=== PATIENT | female | born 1995 | race Caucasian/White ===

== ENCOUNTER 2019-10-24 20:39 | Emergency (ER) | payer BC, SELFPAY ==
--- NOTE | ~2019-10-24 | XR_ITS ---
EXAMINATION: XR hand LT min 3V INDICATION: Left hand pain, initial encounter TECHNIQUE: Three views of the left hand are obtained. COMPARISON: None available FINDINGS: There is no fracture, dislocation, or subluxation. The bones, soft tissues, and joint space s are normal. IMPRESSION: 1. No acute osseous abnormality. Reviewed, dictated and finalized at location A.
[2019-10-24 20:41] VITALS: BP 145/88; PULSE 93; RESP 16; TEMP 36.2; O2SAT 100
--- NOTE | 2019-10-24 21:11 | ED.UPPEXIN ---
HPI - Extremity Injury (Upper) General Chief Complaint: Extremity Injury, Upper Stated Complaint: i need some xrays Time Seen by Provider: 10/24/19 20:57 Source: patient Mode of arrival: ambulatory Limitations: no limitations History of Present Illness HPI narrative: Patient is a 24-year-old female who presents to the emergency department with complaint of injury to her left second and third fingers. Patient states they were smashed when she tried to close a window last night. She reports bruising and swelling to the proximal phalanx of the second and third fingers on her left hand. She denies any other injuries or complaints. She applied some ice last night. She has not taken any medications for the pain. She tried freya taping the fingers without much relief in pain MD complaint: injury to: left and finger Other Extremity Injury: Left: fingers (Second and third) Treatments prior to arrival: cold therapy (Last night) Related Data Allergies Allergy/AdvReac Type Severity Reaction Status Date / Time Penicillins Allergy Mild Hives Verified 10/24/19 21:35 Review of Systems Review of Systems: All systems reviewed & are unremarkable except as noted in HPI and below PMFSH Past Medical History Medical History (Updated 10/24/19 @ 22:22 by Zoe Sams MD) No significant past medical history Surgical History Surgical History (Updated 10/24/19 @ 21:14 by Zoe Sams MD) No significant past surgical history Social History Social History Smoking status: Never smoker Gender identity (if verbalized by the patient): Female Exam Const: General: cooperative, no acute distress and alert Nutritional Appearance: well nourished Orientation/consciousness: patient oriented x3 Limitations: no limitations Resp: Effort & Inspection: normal respiratory effort Skin: General skin exam: normal color Neuro: General: patient oriented x3 Cognition (Neuro): normal cognition Speech: normal speech Extrem: General: full ROM and no clubbing, cyanosis or edema Left upper extremity: hand normal capillary refill, neurosensory exam normal, tenderness of the 2nd digit at the proximal phalanx and of the 3rd digit at the proximal phalanx and ecchymosis of the 2nd digit at the proximal phalanx and of the 3rd digit at the proximal phalanx Psych: Mental Status: mental status grossly normal Affect: normal affect Attitude: cooperative Course Course Emergency Course: Patient with no acute abnormalities noted on imaging. Discussed symptomatic management. Vital Signs Vital signs: Vital Signs Temperature 97.2 F L 10/24/19 20:41 Pulse Rate 93 10/24/19 20:41 Respiratory Rate 16 10/24/19 20:41 Blood Pressure 145/88 H 10/24/19 20:41 Pulse Oximetry 100 10/24/19 20:41 Temperature 97.2 F L 10/24/19 20:41 Pulse Rate 93 10/24/19 20:41 Respiratory Rate 16 10/24/19 20:41 Blood Pressure 145/88 H 10/24/19 20:41 Pulse Oximetry 100 10/24/19 20:41 MDM - Extremity Injury (Upper) Imaging Data Radiologist's impression: ITS Impressions Hand X-Ray 10/24/19 21:08 IMPRESSION: 1. No acute osseous abnormality. Critical Care Time Critical Care Time Critical Care Time: No Discharge Plan Discharge Clinical Impression: Contusion of left hand including fingers Qualifiers: Encounter type: initial encounter Qualified Code(s): S60.222A - Contusion of left hand, initial encounter Patient Disposition: Home, Self-Care Condition: Stable Instructions: Contusion in Adults (ED) Additional Instructions: May take acetaminophen 1000 mg every 6 hours as needed for pain. May take ibuprofen 400-600 mg every 6 hours as needed for pain. Ice and elevate for the next 24 to 48 hours to help with pain. Follow-up with on-call primary care physician for further care if needed Follow-up/Referrals: Heidi Cohn MD [Physician] - PHYSICIAN,RED LEADER [Primary Care Provider] -
[2019-10-24 22:30] VITALS: BP 130/87; PULSE 88; RESP 19; O2SAT 98
== END 2019-10-24 22:30 | disposition home or self-care (01) ==
PROVIDERS: Emergency Provider Emergency Medicine
DX: S60.022A Contusion of left index finger without damage to nail, initial encounter (principal); S60.032A Contusion of left middle finger without damage to nail, initial encounter; W23.0XXA Caught, crushed, jammed, or pinched between moving objects, initial encounter
CPT/HCPCS: 73130; 99283

== ENCOUNTER 2020-03-24 19:22 | Inpatient (IN) | payer BC, SELFPAY ==
--- NOTE | ~2020-03-24 | CT_ITS ---
EXAMINATION: CT abdomen pelvis wo con EXAM DATE: 03/24/2020 20:43 INDICATION: Nausea, vomiting, abdominal pain. TECHNIQUE: Spiral CT of the abdomen and pelvis was performed without contrast. Axial, coronal and s agittal images were reviewed. The dose-length product (DLP) for this examination was 158.00 mGy-cm. The exposure was tailored according to patient size (auto mA exposure control), and iterative recons truction (ASIR) was used as additional dose reduction technique. There is no prior study for compari son. FINDINGS: The liver, spleen, adrenal glands and pancreas are unremarkable. Gallbladder is unremarkab le. No biliary obstruction. There is no nephrolithiasis or hydronephrosis. The uterus is unremark able. The bladder is unremarkable. There is no retroperitoneal or pelvic lymphadenopathy. The appendix is not positively visualized. There is no pericecal inflammatory change to suggest appe ndicitis. The stomach and small bowel are unremarkable. Only small amount of colonic contents, sma ll amount of fluid, and suspect moderate amount of diffuse colonic wall edema, appearance most consis tent with enterocolitis. No free intraperitoneal gas. The heart is normal in size. There are no pericardial or pleural effusions. The lung bases are unremarkable. There are no significant osseous abnormalities identified. IMPRESSION: Findings consistent with enterocolitis. Reviewed, dictated and finalized at location A.
[2020-03-24 19:33] VITALS: BP 138/92; PULSE 124; RESP 20; TEMP 36.9; O2SAT 100
--- NOTE | 2020-03-24 19:35 | ED.NAVMDI ---
HPI - Nausea/Vomiting/Diarrhea General Chief complaint: Nausea/Vomiting/Diarrhea Stated complaint: nausea, vomiting Time Seen by Provider: 03/24/20 19:27 Source: patient Limitations: no limitations History of Present Illness HPI Narrative: Patient is a 24-year-old female complaining of nausea vomiting, diarrhea and diffuse abdominal pain that started this morning. Patient describes the vomitus as previously eaten food nonbilious nonbloody. Diarrhea is described as loose watery nonbloody. Bilateral lower lobe Related Data Home Medications Medication Instructions Recorded Confirmed albuterol sulfate INHALATION 03/24/20 Allergies Allergy/AdvReac Type Severity Reaction Status Date / Time Penicillins Allergy Mild Hives Verified 03/24/20 20:16 Review of Systems Review of Systems: All systems reviewed & are unremarkable except as noted in HPI and below Constitutional: Constitutional: Denies body ache(s), Denies chills, Denies excessive sweating, Denies fatigue, Denies fever(s), Denies headache(s), Denies lethargy, Denies malaise, Denies weakness and Denies weight loss Eyes: Eyes: Denies blurry vision, Denies change in vision and Denies loss of vision ENT: Denies dizziness, Denies ear discharge, Denies headache(s), Denies lip swelling, Denies epistaxis, Denies nasal congestion, Denies neck pain, Denies throat swelling and Denies tongue swelling Cardiovascular: Cardiovascular: Denies chest pain, Denies chest pain at rest, Denies chest pain with activity, Denies diaphoresis, Denies rapid heart rate, Denies edema, Denies irregular heart rhythm, Denies lightheadedness, Denies palpitations, Denies dyspnea and Denies dyspnea on exertion Respiratory: Respiratory: Denies chest congestion, Denies cough, Denies hemoptysis, Denies dyspnea and Denies dyspnea on exertion Gastrointestinal: Gastrointestinal: Denies melena, Denies hematochezia and Denies hematemesis Musculoskeletal: Musculoskeletal: Denies abnormal gait, Denies deformity, Denies joint swelling, Denies limited range of motion, Denies neck pain and Denies numbness Neurologic: Denies Abnormal speech present, Denies abnormal gait, Denies confusion, Denies dizziness, Denies headache(s), Denies focal weakness, Denies loss of vision, Denies numbness, Denies Other visual disturbances, Denies Sensory deficit (Neuro) and Denies weakness Psychiatric: Psychiatric: Denies confusion, Denies depression, Denies auditory hallucinations, Denies homicidal ideation and Denies suicidal ideation Endocrine: Endocrine: Denies cold intolerance, Denies excessive sweating, Denies fatigue, Denies heat intolerance and Denies palpitations Hematologic/Lymphatic: Hematologic/Lymphatic: Denies easy bleeding and Denies easy bruising Allergic/Immunologic: Allergic/Immunologic: Denies lip swelling, Denies throat swelling and Denies tongue swelling PMFSH Past Medical History Medical History (Updated 03/24/20 @ 21:48 by Demetris Gill MD) No significant past medical history Surgical History Surgical History (Updated 10/24/19 @ 21:14 by Zoe Sams MD) No significant past surgical history Social History Social History Smoking status: Never smoker Gender identity (if verbalized by the patient): Female Exam Const: General: cooperative, healthy appearing, comfortable, no acute distress, well developed, alert and awake; No confusion Orientation/consciousness: oriented to person, oriented to place, oriented to time, patient oriented x3 and No confusion Limitations: no limitations HENMT: Head: normal to inspection, normocephalic and atraumatic Ears: hearing grossly normal bilaterally, TM normal on the right and TM normal on the left General nose exam: Normal external nose present, Normal nares present and No nasal discharge present Face and sinus: normal facial exam Mouth: Yes Normal oral and palatal mucosa present, Yes lip normal, Yes tongue normal and Yes oropharynx normal Thro
[2020-03-24 19:52] LABS: Basophils Absolute Auto 0.1 K/mm3 (0.0-0.1); Basophils Percent Auto 0.3 % (0.2-1.2); Hematocrit 45.7 % (37.0-47.0); Hemoglobin 14.6 g/dL (12.0-15.0); Immature Granulocyte Absolute 0.06 K/mm3 (0.00-0.031); Immature Granulocyte Percent A 0.4 % (0-0.5); Lymphocytes Absolute Auto 1.43 K/mm3 (0.9-3.2); Lymphocytes Percent Auto 9.8 % (18.3-44.2); Mean Corpuscular HGB Conc 31.9 g/dl (32-36); Mean Corpuscular Volume 103.2 fl (80-100); Mean Platelet Volume 9.7 fl (7.4-10.4); Monocytes Absolute Auto 1.7 K/mm3 (0.1-0.6); Monocytes Percent Auto 11.5 % (2.6-8.5); Neutrophils Absolute Auto 11.4 K/mm3 (1.3-6.7); Platelet Count Result 369 k/mm3 (150-375); Red Blood Count 4.43 M/mm3 (4.2-5.4); Red Cell Distribution Width 12.9 % (11.5-14.5); White Blood Count 14.6 K/mm3 (4.5-10.0)
--- NOTE | 2020-03-24 20:00 | PM.IMHP ---
H&P: HPI History of Present Illness Date/Time: 03/24/20 20:00 Chief complaint: Nausea, vomiting, abdominal discomfort. Narrative: Abida Bello is a 24-year-old female without significant medical problems who presented to the emergency department earlier today from home for evaluation of nausea, vomiting, and abdominal discomfort. She awoke from sleep at about 07:00 and shortly thereafter she developed nausea, vomiting, and diffuse abdominal cramping. Since that time she reports innumerable bouts of nonbilious and nonbloody emesis, and more recently she has noticed dark brown flecks in the emesis. She had maybe 1 to 2 very small loose stools today but goes on to say that she has not had anything to eat today or yesterday, reportedly because she was stressed out yesterday and she tends not to eat with high levels of stress. A couple of days ago she did go out for a friend's birthday and it sounds as though she consumed quite a bit of alcohol. She tends to drink whiskey, at times in pretty significant quantities, a couple of times a week. No fever, chills, or sweats. She denies indigestion and history of peptic ulcers. She denies recent travel, sick contacts, consumption or perforation of raw meat and fish, and recent antibiotic use. No melena or hematochezia. She denies ingestion of methanol, isopropyl, [id number] supplements, illicit substances other than marijuana, acetaminophen, NSAIDs, and salicylates. Review of Systems Review of Systems: Narrative: Twelve systems were reviewed with pertinent positives and negatives as per HPI. Weight has remained stable. She is complaining of a sore throat from emesis, and feels as though she cannot swallow well because of it. No history of thyroid disease. She denies palpitations and shortness of breath however her mom did notice that her breathing seemed to be more rapid in deeper than usual. She denies cough. No exposure to those positive for COVID-19. She is just finishing her menstrual cycle. No dysuria or hematuria. She denies ever having signs or symptoms of alcohol withdrawal. Admits to having anxiety quite a bit. No depression or harmful thoughts. Except as documented, all other systems were reviewed and are negative. [facility] Past Medical History Medical History No significant past medical history Surgical History Surgical History (Updated 03/25/20 @ 01:34 by Oly Gaffney PA-C) [place] teeth extracted Family History Family History Father Cancer Social History Social History (Updated 03/25/20 @ 01:35 by Oly Gaffney PA-C) Social History: Surrogate decision maker: Bonnie Hollis, mother. Code status: Full code. Smoking status: Never smoker Alcohol intake: current Alcohol use details: Drinks whiskey several times a week, unable to qualify how much she drinks. Substance use: current Substance use type: marijuana Additional living arrangements comments: Lives in [place] with a roommate. Additional occupation/education comments: Beautician. Gender identity (if verbalized by the patient): Female Spiritual care concerns: No Meds Home Medications and Allergies Home Medications Medication Instructions Recorded Confirmed Type No Home Medications 03/25/20 03/25/20 History Allergies Allergy/AdvReac Type Severity Reaction Status Date / Time Penicillins Allergy Mild Hives Verified 03/24/20 20:16 Vital Signs Vital Signs - 24 hr 03/24/20 19:33 03/24/20 20:07 Temperature 98.5 F 98.2 F Pulse Rate 124 H 112 H Respiratory Rate 20 18 Blood Pressure 138/92 H 131/91 H Pulse Oximetry 100 100 Exam Narrative: Exam Narrative: General: Sin moderately ill-appearing female sitting up in bed, frequently clearing her throat and spitting up saliva. Emesis bag contains opaque brown fluid.
[2020-03-24] MEDS: SODIUM CHLORIDE 0.9% IV 1,000 ML 999 ML IV CONT (20:02)
[2020-03-24 20:03] LABS: Alanine Aminotransferase 103 U/L (4-35); Albumin Level 5.7 g/dL (3.5-5.1); Alkaline Phosphatase 115 U/L (38-126); Anion Gap 33.00001 mmol/L (8-16); Aspartate Amino Transferase 101 U/L (14-36); Bilirubin,Total 0.7 mg/dL (0.2-1.3); Blood Urea Nitrogen 10 mg/dL (7-17); Calcium 10.1 mg/dL (8.4-10.2); Carbon Dioxide < 5 mmol/L (22-30); Chloride 99 mmol/L (98-107); Estimated Glomerular Filt Rate 50; Glucose 131 mg/dL (65-105); Lipase 77 U/L (23-300); Potassium 5.3 mmol/L (3.4-5.0); Sodium 137 mmol/L (137-145)
[2020-03-24] MEDS: PROMETHAZINE HCL 25 MG/ML AMPUL 12.5 MG IV PUSH (20:03)
[2020-03-24] MEDS: ONDANSETRON INJ 4 MG/2 ML VIAL IV PUSH ×2 (20:03→21:23)
[2020-03-24 20:07] VITALS: BP 131/91; PULSE 112; RESP 18; TEMP 36.8; O2SAT 100
[2020-03-24 21:09] LABS: Add Urine Microscopic? YES; Appearance Urine Cloudy (Clear); Bilirubin Urine Negative (Negative); Blood Urine 3+ (Negative); Color Urine Yellow (Yellow); Glucose Urine UA Negative (Negative); Hyaline Casts Urine 50+ /lpf; Ketones Urine 2+ mg/dL (Negative); Leukocyte Esterase Ur Negative LEU/UL (Negative); Mucus Urine Rare /lpf; Nitrate Urine Negative (Negative); Protein Urine 2+ mg/dL (Negative); RBC Urine >75 /hpf (0-2); Specific Grav Ur 1.017 (1.001-1.035); Squamous Epithelial Cell Urine Many /hpf (Few); Urobilinogen Urine Negative mg/dL (<2.0)
[2020-03-24] MEDS: LACTATED RINGERS 1,000 ML 999 ML IV CONT ×2 (21:23→22:23)
[2020-03-24] MEDS: PANTOPRAZOLE SODIUM IV 40 MG VIAL IV PUSH (21:29)
[2020-03-24 22:04] LABS: Magnesium 2.1 mg/dL (1.6-2.3); Phosphorus 5.1 mg/dL (2.5-4.5)
[2020-03-24 22:04] LABS: Alveolar/Arterial O2 Gradient 14.9 mmHg; Base Excess ABG -21.2 mEq/l (+/-2.0); Carboxyhemoglobin 0.4 % THb (0-2.0); Fractional Inspired Oxygen 21 %; HCO3 ABG 4.7 mEq/l (22.0-26.0); Methemoglobin ABG 0.4 %THb (0-1.5); Oxygen Saturation ABG 97.5 % (95.0-100.0); Oxyhemoglobin 96.8 % THb (90.0-100.0); PO2 ABG 119.3 mmHg (80.0-100.0); PO2 FiO2 Ratio Arterial Blood 5.68 %; Reduced Hemoglobin 2.4 %THb (0-5.0); Total Hemoglobin 13.1 g/dL (12.0-18.0)
[2020-03-24 22:05] LABS: CRP < 0.5 mg/dL (<1.0)
[2020-03-24 22:06] LABS: pH ABG 7.179 (7.350-7.450)
[2020-03-24 22:07] LABS: Device ROOM AIR; Modified Allen's Test Pass; Site Drawn LEFT RADIAL
[2020-03-24 22:14] VITALS: BP 117/77; PULSE 124; RESP 18; O2SAT 98
[2020-03-24 22:33] LABS: INR 1.1; Prothrombin Time 14.3 Seconds (11.1-14.7)
[2020-03-24 22:34] LABS: Partial Thromboplastin Time 28.5 SECONDS (22.3-36.8)
[2020-03-24 22:35] LABS: Hepatitis B Surface Antigen Negative (Negative)
[2020-03-24 22:36] LABS: Lactate Dehydrogenase 312 U/L (313-618); Lactic Acid Reflex 0.9 mmol/L (0.7-2.1)
[2020-03-24 22:41] LABS: HAV RESULT Negative (Negative); Hepatitis B Core IgM Result Negative (Negative)
[2020-03-24 22:45] LABS: Amphetamine Screen Urine Negative (Negative); Barbiturate Screen Urine Negative (Negative); Benzodiazepines Screen Urine Negative (Negative); Cannabinoid Screen Urine Positive (Negative); Cocaine Screen Urine Negative (Negative); Methadone Screen Urine Negative (Negative); Opiate Screen Urine Negative (Negative); Phencyclidine Screen Urine Negative (Negative)
[2020-03-24 22:52] LABS: Hepatitis C Virus Antibody Negative (Negative)
[2020-03-25] VITALS (8 sets, daily range): BP systolic 102–118; BP diastolic 64–79; PULSE 93–132; RESP 12–26; TEMP 36.8–37.2; O2SAT 98–100; BMI 19.5
[2020-03-25] MEDS: SODIUM BICARBONATE 8.4% 150 MEQ in DEXTROSE 5% 1,000 ML 950 ML 75 MEQ IV CONT (00:11)
[2020-03-25] MEDS: metroNIDAZOLE 500 MG/ISO 100ML 500 MG/100 ML BAG 100 MG IVPB ×5 (00:11→23:14)
--- NOTE | 2020-03-25 00:54 | ADMGEN ---
This patient, Abida Bello, was admitted to Intensive Care Unit-9 03/24/20 at 2335. Patient/family oriented to hospital policies and general routines including ID bracelet, bed and alarms, visiting hours, pain management, procedures, bathroom and other care routines, personal items, smoking policy, room service/diet, and visiting hours. Information on how to activate the Rapid Response Team has been discussed. Patient/Family are encouraged to report perceived risks to care and to ask questions if they do not understand what they are told or what they should do.
[2020-03-25 01:06] LABS: Hemoglobin A1C 4.4 % (<5.7)
[2020-03-25 01:12] LABS: Anion Gap 18 mmol/L (8-16); Blood Urea Nitrogen 7 mg/dL (7-17); Calcium 8.4 mg/dL (8.4-10.2); Carbon Dioxide 8 mmol/L (22-30); Chloride 108 mmol/L (98-107); Estimated CRCL calculation 65 ml/min; Estimated Glomerular Filt Rate > 60; Glucose 111 mg/dL (65-105); Potassium 4.9 mmol/L (3.4-5.0); Sodium 134 mmol/L (137-145)
[2020-03-25 02:11] LABS: Acetaminophen < 10 ug/mL (10-30); Salicylate < 1.0 mg/dL (2-20)
[2020-03-25 04:17] LABS: Hematocrit 35.4 % (37.0-47.0); Hemoglobin 11.8 g/dL (12.0-15.0); Mean Corpuscular HGB Conc 33.3 g/dl (32-36); Mean Corpuscular Hemoglobin 33.2 pg (26-34); Mean Corpuscular Volume 99.7 fl (80-100); Mean Platelet Volume 9.2 fl (7.4-10.4); Platelet Count Result 227 k/mm3 (150-375); Red Blood Count 3.55 M/mm3 (4.2-5.4); White Blood Count 12.4 K/mm3 (4.5-10.0)
[2020-03-25] MEDS: ONDANSETRON INJ 4 MG/2 ML VIAL IV PUSH (04:17)
[2020-03-25 04:39] LABS: Alanine Aminotransferase 66 U/L (4-35); Albumin Level 4.2 g/dL (3.5-5.1); Alkaline Phosphatase 61 U/L (38-126); Anion Gap 15 mmol/L (8-16); Aspartate Amino Transferase 68 U/L (14-36); Bilirubin,Total 0.7 mg/dL (0.2-1.3); Blood Urea Nitrogen 7 mg/dL (7-17); Calcium 8.1 mg/dL (8.4-10.2); Carbon Dioxide 13 mmol/L (22-30); Chloride 106 mmol/L (98-107); Estimated CRCL calculation 72 ml/min; Estimated Glomerular Filt Rate > 60; Glucose 125 mg/dL (65-105); Magnesium 1.6 mg/dL (1.6-2.3); Potassium 4.2 mmol/L (3.4-5.0); Sodium 134 mmol/L (137-145)
[2020-03-25] MEDS: LACTATED RINGERS 1,000 ML 999 ML IV CONT (07:30)
--- NOTE | 2020-03-25 09:07 | WPDCNINT ---
Assessment and Plan Assessment and plan (1) Sepsis: Code(s): A41.9 - Sepsis, unspecified organism Status: Acute Assessment and Plan: leukocytosis, tachycardia, elevated creatinine, enterocolitis - lactic acid is normal: Blood pressures have been stable - continue levofloxacin and Flagyl - CT scan of the abdomen done in the ER showed enterocolitis (2) Metabolic acidosis: Code(s): E87.2 - Acidosis Status: Acute Assessment and Plan: severe metabolic acidosis could be related multiple reasons, could be secondary to diarrhea, alcohol use, history of salicylates use - continue sodium bicarb IV fluids (3) Enterocolitis: Code(s): K52.9 - Noninfective gastroenteritis and colitis, unspecified Status: Acute Assessment and Plan: continue antibiotics as above (4) Acute dehydration: Code(s): E86.0 - Dehydration Status: Acute Assessment and Plan: patient will be given additional IV fluid bolus this morning - continue maintenance IV fluids with bicarb infusion (5) Nausea & vomiting: Code(s): R11.2 - Nausea with vomiting, unspecified Status: Acute Assessment and Plan: vomiting has resolved, continues to have nausea, patient does have Zofran p.r.n. ordered Additional Plan discussed with patient updated with her condition and plan of care. I answered all questions code status: Full code Critical care time spent: 43 minutes Due to a high probability of clinically significant, life threatening deterioration, the patient required my highest level of preparedness to intervene emergently and I personally spent this critical care time directly and personally managing the patient. This critical care time included obtaining a history; examining the patient; pulse oximetry; ordering and review of studies; arranging urgent treatment with development of a management plan; evaluation of patient's response to treatment; frequent reassessment; and discussions with other providers. It was exclusive of separately billable procedures and treating other patients and teaching time. Please see Assessment and Plan section and the rest of the note for further information on patient assessment and treatment Cabin Service Agent Consult Note Consult date: 03/25/20 Time Seen: 07:03 Reason for consult: anion gap metabolic acidosis, nausea, vomiting, diarrhea, abdominal discomfort HPI: Abida Bello is a 24 year old female with no previous past medical history presented the ED on 03/24/2020 with complains of nausea, vomiting, abdominal discomfort and diarrhea. Patient was found to have a significant anion gap metabolic acidosis. Blood sugars were within normal limits. LFT were elevated. ABG showed a pH of 7.17. WBC count of 14.6. Patient was given 3 L IV fluid bolus, started on a bicarb infusion . CT scan of the abdomen and pelvis showed moderate amount of diffuse colonic wall edema consistent with enterocolitis. Patient was transferred to the ICU for further management. Patient seen and examined this morning. States she feels a little better, blood pressures are stable, patient remains tachycardic. Complains of nausea, abdominal discomfort, feels thirsty. His any nausea, chest pain, shortness of breath. Patient is awake, alert, oriented x3. Upon further questioning patient denies any tobacco use, illicit drug use except for marijuana. patient does drink see several times a week. Patient does take NSAIDs and salicylates along with acetaminophen at times. Urine drug screen was positive only for marijuana. Serum creatinine was 1.3 on admission. Eighty creatinine has come down to 0.8 this morning. LFTs trending down. CRP, ferritin and LDH were within normal limits. INR of 1.1. Urine output has been adequate continue patient on afebrile and hemodynamically stable with tachycardia Review of Systems Review of Systems: All systems reviewed & are unremar
--- NOTE | 2020-03-25 14:40 | PC.NURSE ---
1435-PATIENT TRANSFERRED TO ROOM 251. REPORT GIVEN TO ALESHIA PEREIRA. ALL QUESTIONS ANSWERED.
--- NOTE | 2020-03-25 15:15 | PC.NURSE ---
This patient, Abida Bello, was received from ICU on 03/25/20 at 1435. Received report from ALESHIA Apodaca. Patient/family oriented to unit policies and routines.
--- NOTE | 2020-03-25 16:19 | PM.IMPN ---
Progress Note: A&P Assessment and Plan (1) Sepsis: Code(s): A41.9 - Sepsis, unspecified organism Status: Acute Assessment and Plan: thought secondary to enterocolitis, continue hydration and antibiotics. Serum lactate normal (2) Gastritis: Code(s): K29.70 - Gastritis, unspecified, without bleeding Status: Acute Assessment and Plan: hydration and anti emetics (3) Enterocolitis: Code(s): K52.9 - Noninfective gastroenteritis and colitis, unspecified Status: Acute Assessment and Plan: hydration and antibiotics. Improving and will advance diet (4) Metabolic acidosis: Code(s): E87.2 - Acidosis Status: Acute Assessment and Plan: negative lactic acid and normal blood sugar suspect dehydration and/or alcoholic ketoacidosis.. Continue hydration with bicarbonate and (5) Acute dehydration: Code(s): E86.0 - Dehydration Status: Acute Assessment and Plan: BUN and and creatinine now normal range with creatinine 0.8 continue hydration (6) Hyperkalemia: Code(s): E87.5 - Hyperkalemia Status: Acute Assessment and Plan: with correction of acidosis potassium has fallen a now 4.2 this a.m. (7) Elevated LFTs: Code(s): R79.89 - Other specified abnormal findings of blood chemistry Status: Acute Assessment and Plan: falling and probably secondary to ETOH consumption. Especially with elevated MCV and normal B12. Hepatitis profile negative. Continue serial examination , start thiamin Subjective Date/time seen: 03/25/20 16:19 Interval history: date of visit 03/25. 24-year-old white female admitted with nausea and vomiting and found to have entero colitis on CT scan with acute renal failure and metabolic acidosis. With hydration her metabolic status has improved and she feels better ready to eat something.. Exam Narrative: Exam Narrative: Blood pressure 104/64 pulse is 72 saturating 98% room air General: in less distress this a.m. and lying comfortably in bed Weight: only 48.6 kg. BMI: 19.6. HEENT: PERRL, Sclerae anicteric. Oral mucosa is better hydrated Neck: Supple. . Respiratory: . Lungs are clear to auscultation bilaterally. Cardiovascular: heart rate has slowed and no murmurs heard Gastrointestinal: Abdomen is soft and nondistended with positive bowel sounds. She is less tender to palpation throughout the abdomen. No voluntary guarding or rebound tenderness. Skin: Warm and dry. No rash or lesions on limited exam. Extremities: No edema. Radial and pedal pulses intact. Neurological: Alert. Cranial nerves 2-12 are grossly intact. with no focal neurological deficits Psychiatric: Cooperative. Normal mood and affect. Objective Data Vital Signs Vital Signs: Vital Signs - 24 hr 03/24/20 19:33 03/24/20 20:07 03/24/20 22:14 Temperature 36.9 C 36.8 C Pulse Rate 124 H 112 H 124 H Respiratory Rate 20 18 18 Blood Pressure 138/92 H 131/91 H 117/77 Pulse Oximetry 100 100 98 03/25/20 00:00 03/25/20 02:00 03/25/20 04:00 Temperature 36.8 C 37.2 C Pulse Rate 120 H 125 H 123 H Respiratory Rate 26 H 18 18 Blood Pressure 118/79 108/65 114/65 Pulse Oximetry 100 99 98 03/25/20 06:00 03/25/20 08:00 03/25/20 10:00 Temperature 36.9 C Pulse Rate 107 H 105 H 113 H Respiratory Rate 15 17 12 Blood Pressure 102/65 109/79 109/67 Pulse Oximetry 98 100 100 03/25/20 12:00 Temperature 36.9 C Pulse Rate 93 Respiratory Rate 18 Blood Pressure 105/64 Pulse Oximetry 98 Intake/Output Intake/Output: Intake & Output 03/22/20 03/23/20 03/24/20 03/25/20 23:59 23:59 23:59 23:59 Intake Total 3000 867 Output Total 500 Balance 3000 367 Meds/Results Medications: Active Medications Generic Name Dose Route Start Last Admin Trade Name Freq PRN Reason Stop Dose Admin Levofloxacin/Dextrose 750 mg in 150 mls @ 100 mls/hr 03/25/20 00:00 03/25/20 02:42 Levaq
[2020-03-25] MEDS: SODIUM BICARBONATE 8.4% 150 MEQ in DEXTROSE 5% 1,000 ML 950 ML 100 MEQ IV CONT (17:08)
[2020-03-25] MEDS: THIAMINE HCL 100 MG TABLET PO (17:10)
[2020-03-26] MEDS: ONDANSETRON INJ 4 MG/2 ML VIAL IV PUSH (05:46)
[2020-03-26] MEDS: SODIUM BICARBONATE 8.4% 150 MEQ in DEXTROSE 5% 1,000 ML 950 ML 100 MEQ IV CONT ×2 (05:49→08:05)
[2020-03-26] MEDS: metroNIDAZOLE 500 MG/ISO 100ML 500 MG/100 ML BAG 100 MG IVPB ×3 (05:50→18:23)
[2020-03-26 06:00] VITALS: BP 115/69; PULSE 74; RESP 21; TEMP 36.4; O2SAT 100
[2020-03-26 07:05] LABS: Alanine Aminotransferase 93 U/L (4-35); Albumin Level 3.5 g/dL (3.5-5.1); Alkaline Phosphatase 53 U/L (38-126); Anion Gap 6 mmol/L (8-16); Aspartate Amino Transferase 126 U/L (14-36); Bilirubin,Total 0.7 mg/dL (0.2-1.3); Blood Urea Nitrogen 3 mg/dL (7-17); Calcium 8.6 mg/dL (8.4-10.2); Carbon Dioxide 32 mmol/L (22-30); Chloride 97 mmol/L (98-107); Estimated CRCL calculation 93 ml/min; Estimated Glomerular Filt Rate > 60; Glucose 81 mg/dL (65-105); Magnesium 1.5 mg/dL (1.6-2.3); Sodium 135 mmol/L (137-145)
[2020-03-26 07:11] LABS: Basophils Percent Auto 0.6 % (0.2-1.2); Eosinophils Absolute Auto 0.1 K/mm3 (0-0.3); Hematocrit 34.3 % (37.0-47.0); Hemoglobin 11.8 g/dL (12.0-15.0); Immature Granulocyte Absolute 0.01 K/mm3 (0.00-0.031); Immature Granulocyte Percent A 0.2 % (0-0.5); Lymphocytes Absolute Auto 1.91 K/mm3 (0.9-3.2); Lymphocytes Percent Auto 39.5 % (18.3-44.2); Mean Corpuscular HGB Conc 34.4 g/dl (32-36); Mean Corpuscular Volume 95.8 fl (80-100); Mean Platelet Volume 9.7 fl (7.4-10.4); Monocytes Absolute Auto 0.9 K/mm3 (0.1-0.6); Monocytes Percent Auto 19.5 % (2.6-8.5); Neutrophils Absolute Auto 1.9 K/mm3 (1.3-6.7); Neutrophils Percent Auto 39.2 % (45.5-73.1); Platelet Count Result 187 k/mm3 (150-375); Red Blood Count 3.58 M/mm3 (4.2-5.4); White Blood Count 4.8 K/mm3 (4.5-10.0)
[2020-03-26 07:35] LABS: Phosphorus < 1.0 mg/dL (2.5-4.5)
[2020-03-26 07:56] LABS: Vitamin D 25 Hydroxy 18.6 ng/mL
[2020-03-26] MEDS: MAGNESIUM SULF 2 GM/WATER 50ML 2 GM/50 ML BAG IVPB (09:22)
[2020-03-26] MEDS: POTASSIUM CHLORIDE 20 MEQ TABLET PO (09:23)
[2020-03-26] MEDS: THIAMINE HCL 100 MG TABLET PO (09:23)
[2020-03-26] MEDS: POTASSIUM PHOS,M-BASIC-D-BASIC 20 MMOL in SODIUM CHLORIDE 0.9% IV 250 ML 62.5 MMOL IVPB ×3 (10:29→20:52)
--- NOTE | 2020-03-26 12:36 | PM.IMPN ---
Progress Note: A&P Assessment and Plan (1) Sepsis: Code(s): A41.9 - Sepsis, unspecified organism Status: Acute Assessment and Plan: thought secondary to enterocolitis, continue hydration and antibiotics. Serum lactate normal, co2 risen and cultures neg (2) Gastritis: Code(s): K29.70 - Gastritis, unspecified, without bleeding Status: Acute Assessment and Plan: hydration and anti emetics (3) Enterocolitis: Code(s): K52.9 - Noninfective gastroenteritis and colitis, unspecified Status: Acute Assessment and Plan: hydration and antibiotics. Improving and will advance diet to regular (4) Metabolic acidosis: Code(s): E87.2 - Acidosis Status: Acute Assessment and Plan: negative lactic acid and normal blood sugar suspect dehydration and/or alcoholic ketoacidosis.. C02 32 so stop hydration with bicarbonate (5) Acute dehydration: Code(s): E86.0 - Dehydration Status: Acute Assessment and Plan: BUN and and creatinine now normal range with creatinine 0.6 today (6) Hyperkalemia: Code(s): E87.5 - Hyperkalemia Status: Acute Assessment and Plan: with correction of acidosis potassium has fallen a now 3.0 this a.m., replace (7) Elevated LFTs: Code(s): R79.89 - Other specified abnormal findings of blood chemistry Status: Acute Assessment and Plan: falling and probably secondary to ETOH consumption. Especially with elevated MCV and normal B12. Hepatitis profile negative. Continue serial examination , started thiamin CT liver ok will need outpt follow up Subjective Date/time seen: 03/26/20 12:36 Interval history: date of visit 03/26. 24-year-old white female admitted with nausea and vomiting and found to have entero colitis on CT scan with acute renal failure and metabolic acidosis. With hydration her metabolic status has improved and she feels better and tolerating full liquid diet.. Exam Narrative: Exam Narrative: Blood pressure 114/70 pulse is 74 saturating 98% room air afebrile General: lying comfortably in bed , no distress HEENT: PERRL, Sclerae anicteric. Neck: Supple. . Respiratory: . Lungs are clear to auscultation bilaterally. Cardiovascular: heart rate has slowed and no murmurs heard Gastrointestinal: Abdomen is soft and nondistended with positive bowel sounds. She is less tender to palpation throughout the abdomen. Skin: Warm and dry. No rash or lesions Extremities: No edema. Radial and pedal pulses intact. Neurological: Alert. Cranial nerves 2-12 are grossly intact. with no focal neurological deficits Psychiatric: Cooperative. Normal mood and affect. Objective Data Vital Signs Vital Signs: Vital Signs - 24 hr 03/25/20 22:00 03/26/20 06:00 Temperature 37.1 C 36.4 C Pulse Rate 97 74 Respiratory Rate 21 H 21 H Blood Pressure 111/72 115/69 Pulse Oximetry 100 100 Intake/Output Intake/Output: Intake & Output 03/23/20 03/24/20 03/25/20 03/26/20 23:59 23:59 23:59 23:59 Intake Total 3000 2270 3100 Output Total 700 600 Balance 3000 1570 2500 Meds/Results Medications: Active Medications Generic Name Dose Route Start Last Admin Trade Name Freq PRN Reason Stop Dose Admin Levofloxacin/Dextrose 750 mg in 150 mls @ 100 mls/hr 03/25/20 00:00 03/26/20 01:56 Levaquin 750 Mg/D5w 150 Ml IVPB Infused Q24H ARIAN Infusion Metronidazole 500 mg in 100 mls @ 100 mls/hr 03/24/20 23:00 03/26/20 11:35 Flagyl 500 Mg/Iso Soln 100 Ml IVPB Infused Q6H ARIAN Infusion Sodium Bicarbonate 150 meq/ 1,100 mls @ 100 mls/hr 03/24/20 23:30 03/26/20 08:05 Dextrose IV CONT 100 mls/hr .Q11H ARIAN Administration Potassium Phosphate 20 mmol/ 256.6667 mls @ 62.5 mls/hr 03/26/20 18:00 Sodium Chloride IVPB 03/26/20 22:06 ONCE ONE Potassium Phosphate 20 mmol/ 256.6667 mls @ 62.5 mls/hr 03/26/20 13:00 Sodium Chloride
[2020-03-26 14:00] VITALS: BP 130/85; PULSE 91; RESP 16; TEMP 36.6; O2SAT 100
[2020-03-26 16:17] LABS: Albumin Level 4.9 g/dL (3.5-5.1); Anion Gap 12 mmol/L (8-16); Calcium 9.7 mg/dL (8.4-10.2); Carbon Dioxide 26 mmol/L (22-30); Chloride 102 mmol/L (98-107); Estimated CRCL calculation 93 ml/min; Estimated Glomerular Filt Rate > 60; Glucose 87 mg/dL (65-105); Phosphorus 2.7 mg/dL (2.5-4.5); Potassium 3.6 mmol/L (3.4-5.0); Sodium 140 mmol/L (137-145)
[2020-03-26 16:23] LABS: Blood Urea Nitrogen < 2 mg/dL (7-17)
[2020-03-26 20:00] VITALS: BP 113/85; PULSE 80; RESP 18; TEMP 36.4; O2SAT 100
[2020-03-27] MEDS: metroNIDAZOLE 500 MG/ISO 100ML 500 MG/100 ML BAG 100 MG IVPB ×2 (00:14→05:53)
[2020-03-27 04:00] VITALS: BP 123/89; PULSE 100; RESP 18; TEMP 36.2; O2SAT 100
[2020-03-27 06:16] LABS: Albumin Level 3.7 g/dL (3.5-5.1); Anion Gap 8 mmol/L (8-16); Calcium 8.8 mg/dL (8.4-10.2); Carbon Dioxide 24 mmol/L (22-30); Chloride 105 mmol/L (98-107); Estimated CRCL calculation 93 ml/min; Estimated Glomerular Filt Rate > 60; Glucose 83 mg/dL (65-105); Magnesium 1.9 mg/dL (1.6-2.3); Phosphorus 2.9 mg/dL (2.5-4.5); Potassium 3.4 mmol/L (3.4-5.0); Sodium 137 mmol/L (137-145)
[2020-03-27 06:21] LABS: Blood Urea Nitrogen < 2 mg/dL (7-17)
[2020-03-27] MEDS: THIAMINE HCL 100 MG TABLET PO (08:12)
[2020-03-27] MEDS: POTASSIUM CHLORIDE 20 MEQ TABLET PO (12:08)
--- NOTE | 2020-03-28 18:09 | PM.DS ---
DS: Admitting Diagnosis Admitting Diagnosis Admitting Diagnosis: Nausea, vomiting, abdominal discomfort. DS: Discharge Diagnosis Discharge Diagnosis (1) Sepsis: Code(s): A41.9 - Sepsis, unspecified organism Status: Acute Assessment and Plan: thought secondary to enterocolitis, continued hydration and antibiotics. Serum lactate normal, co2 risen and cultures neg white count normal and CO2 had risen to normal by discharge (2) Gastritis: Code(s): K29.70 - Gastritis, unspecified, without bleeding Status: Acute Assessment and Plan: hydration and anti emetics (3) Enterocolitis: Code(s): K52.9 - Noninfective gastroenteritis and colitis, unspecified Status: Acute Assessment and Plan: hydration and antibiotics. Improving and advanced diet to regular was tolerated well before discharge discharge home on Levaquin 500 daily for 4 days and metronidazole 500 t.i.d. caution not to drink any alcohol with the metronidazole (4) Metabolic acidosis: Code(s): E87.2 - Acidosis Status: Acute Assessment and Plan: negative lactic acid and normal blood sugar suspect dehydration and/or alcoholic ketoacidosis.. C02 32 so stopped hydration with bicarbonate and normal CO2 of 24 at discharge (5) Acute dehydration: Code(s): E86.0 - Dehydration Status: Acute Assessment and Plan: BUN and and creatinine now normal range with creatinine 0.6 today at discharge (6) Hyperkalemia: Code(s): E87.5 - Hyperkalemia Status: Acute Assessment and Plan: with correction of acidosis potassium has fallen and actually toward low side (7) Elevated LFTs: Code(s): R79.89 - Other specified abnormal findings of blood chemistry Status: Acute Assessment and Plan: falling and probably secondary to ETOH consumption. Especially with elevated MCV and normal B12. Hepatitis profile negative. CT liver ok will need outpt follow up with liver profile or complete metabolic profile within 2 weeks DS: Summary Hospital Course Hospital Course: 24-year-old female admitted nausea and vomiting found to profound acidosis. Acidosis thought to be secondary to dehydration ketoacidosis and/or alcoholic acidosis which responded to bicarbonate infusion. CT scan revealed enterocolitis is and she is treated with antibiotics with resolution of diarrhea and abdominal discomfort. She will continue p.o. antibiotics for 4 more days post discharge. At discharge CO2 is up to 24 creatinine normal with potassium 3.4 which was replaced. She was encouraged not to drink any alcohol and to have a metabolic profile drawn within 2 weeks to follow-up on her LFTs. Hepatitis AB and C profile was negative and CT scan showed no abnormality of the liver parenchyma or right upper quadrant Time Spent with Patient Time attestation: Total time spent providing and/or coordinating discharge services: 35 minutes Exam Narrative: Exam Narrative: condition on discharge blood pressure 124/84 pulse is 100 saturating 100% on room air afebrile lungs clear CV slightly tachy but regular rate rhythm no murmur abdomen soft nontender bowel sounds normal active extremities without edema good distal pulses up in about tolerating a regular diet and able to be discharged home in stable condition DS: Data Data Completed and Pending Labs on day of discharge: Preliminary micro results at discharge 03/24/20 22:18 Blood Culture - Preliminary Blood 03/24/20 22:17 Blood Culture - Preliminary Blood Discharge Plan Discharge Attending physician on discharge: Dominic Nguyen Discharging Clinician: Dominic Nguyen Patient Disposition: Home, Self-Care Activity: as tolerated Diet: as tolerated Patient Instructions: Antibiotic Form, Dehydration (GEN), Acute Nausea and Vomiting (GEN), Metabolic Acidosis (GEN) Stand Alone Forms: General Discharge I
== END 2020-03-27 12:35 | disposition home or self-care (01) | DRG 872 ==
LOC: ANHED 22:32 → ANHICU 03-25 01:01 → ANH2MED 03-27 10:57 → ANHICU 03-31 13:58
PROVIDERS: Physician Assistant; Admitting Provider Internal Medicine; Emergency Provider Emergency Medicine; Visit Provider Internal Medicine
DX: A41.9 Sepsis, unspecified organism (principal); E87.2 Acidosis; N17.9 Acute kidney failure, unspecified; A08.4 Viral intestinal infection, unspecified; K52.9 Noninfective gastroenteritis and colitis, unspecified; E86.0 Dehydration; E87.5 Hyperkalemia; R94.5 Abnormal results of liver function studies; Z72.89 Other problems related to lifestyle
CPT/HCPCS: 36415; 36600; 74176; 80048; 80053; 80069; 80074; 80076; 80307; 81001; 81025; 82306; 82375; 82607; 82728; 82805; 83036; 83050; 83605; 83615; 83690; 83735; 84100; 84443; 85025; 85027; 85610; 85730; 86140; 87040; 96361; 96374; 96375; 96376; 99285; A9270; C9113; J1956; J2405; J2550; J3475; J7030; J7050; J7070; J7120

== ENCOUNTER 2020-04-12 07:40 | Outpatient (CLI) | payer BC, SELFPAY ==
[2020-04-12 08:15] LABS: Alanine Aminotransferase 29 U/L (4-35); Albumin Level 4.3 g/dL (3.5-5.1); Alkaline Phosphatase 62 U/L (38-126); Anion Gap 10 mmol/L (8-16); Aspartate Amino Transferase 37 U/L (14-36); Bilirubin,Total 0.4 mg/dL (0.2-1.3); Blood Urea Nitrogen 15 mg/dL (7-17); Calcium 9.1 mg/dL (8.4-10.2); Carbon Dioxide 25 mmol/L (22-30); Chloride 104 mmol/L (98-107); Estimated Glomerular Filt Rate > 60; Glucose 95 mg/dL (65-105); Potassium 4.5 mmol/L (3.4-5.0); Sodium 139 mmol/L (137-145)
== END 2020-04-12 07:41 | disposition home or self-care (01) ==
PROVIDERS: Visit Provider Internal Medicine
DX: R79.89 Other specified abnormal findings of blood chemistry (principal); R11.2 Nausea with vomiting, unspecified
CPT/HCPCS: 36415; 80053

== ENCOUNTER 2020-07-05 00:39 | Outpatient (CLI) | payer BC, SELFPAY ==
[2020-07-05 18:46] LABS: SARS-CoV-2 RNA PCR Negative
== END 2020-07-05 00:40 | disposition home or self-care (01) ==
LOC: ANHCOVIDDT 00:39
PROVIDERS: PCP Family Medicine; Visit Provider Internal Medicine Gastroenterology
DX: Z01.812 Encounter for preprocedural laboratory examination (principal); Z20.822 Contact with and (suspected) exposure to COVID-19
CPT/HCPCS: C9803; U0003; U0005

== ENCOUNTER 2020-07-05 08:46 | Outpatient (CLI) | payer BC, SELFPAY ==
[2020-07-05 09:23] LABS: Basophils Absolute Auto 0.1 K/mm3 (0.0-0.1); Basophils Percent Auto 1.4 % (0.2-1.2); Eosinophils Absolute Auto 0.1 K/mm3 (0-0.3); Eosinophils Percent Auto 2.5 % (0-4.4); Hematocrit 40.4 % (37.0-47.0); Hemoglobin 13.4 g/dL (12.0-15.0); Lymphocytes Absolute Auto 2.04 K/mm3 (0.9-3.2); Lymphocytes Percent Auto 46.5 % (18.3-44.2); Mean Corpuscular HGB Conc 33.2 g/dl (32-36); Mean Corpuscular Hemoglobin 32.6 pg (26-34); Mean Corpuscular Volume 98.3 fl (80-100); Monocytes Absolute Auto 0.6 K/mm3 (0.1-0.6); Monocytes Percent Auto 14.4 % (2.6-8.5); Neutrophils Absolute Auto 1.6 K/mm3 (1.3-6.7); Neutrophils Percent Auto 35.2 % (45.5-73.1); Platelet Count Result 207 k/mm3 (150-375); Red Blood Count 4.11 M/mm3 (4.2-5.4); White Blood Count 4.4 K/mm3 (4.5-10.0)
[2020-07-05 09:38] LABS: Alanine Aminotransferase 34 U/L (4-35); Albumin Level 4.4 g/dL (3.5-5.1); Alkaline Phosphatase 73 U/L (38-126); Anion Gap 7 mmol/L (8-16); Aspartate Amino Transferase 75 U/L (14-36); Bilirubin,Total 0.7 mg/dL (0.2-1.3); Blood Urea Nitrogen 9 mg/dL (7-17); CRP < 0.5 mg/dL (<1.0); Calcium 9.1 mg/dL (8.4-10.2); Carbon Dioxide 23 mmol/L (22-30); Chloride 106 mmol/L (98-107); Estimated Glomerular Filt Rate > 60; Glucose 80 mg/dL (65-105); Sodium 136 mmol/L (137-145)
[2020-07-05 10:00] LABS: Erythrocyte Sedimentation Rate 5 mm/hr (0-20)
[2020-07-10 19:35] LABS: Tissue Transglutaminase IgA Ab 2 U/mL (<4)
[2020-07-11 15:09] LABS: Tissue Transglutaminase IgG Ab 4 U/mL (<6)
== END 2020-07-05 08:47 | disposition home or self-care (01) ==
PROVIDERS: PCP Family Medicine; Visit Provider Internal Medicine Gastroenterology
DX: R11.2 Nausea with vomiting, unspecified (principal); K52.9 Noninfective gastroenteritis and colitis, unspecified
CPT/HCPCS: 36415; 80053; 83516; 85025; 85652; 86140

== ENCOUNTER 2020-07-09 01:21 | Day surgery (SDC) | payer BC, SELFPAY ==
[2020-06-25 14:13] VITALS: BMI 19.9
--- NOTE | 2020-07-09 09:16 | WPDANESEPPF ---
Anes - Initial Pre Proc Eval Procedure: Operation Date: 07/09/20 10:30 Proposed Procedures p Esophagogastroduodenoscopy & Colonoscopy - Christ Montoya MD Date/Time: 07/09/20 09:16 Surgeon: Christ Montoya MD Pre Op Diagnosis: Diarrhea, Nausea Patient Data Age: 24 Gender: F Height: 1.57 m Weight: 49.5 kg Allergies Allergy/AdvReac Type Severity Reaction Status Date / Time Penicillins Allergy Mild Rash Verified 07/09/20 09:25 Home Medications Medication Instructions Recorded Confirmed Type No Home Medications 07/09/20 07/09/20 History Patient hx anesthesia problems: none Family hx anesthesia problems: none PMFSH Past Medical History Medical History (Updated 06/25/20 @ 11:38 by Christ Montoya MD) Alcohol use Cannabis abuse Diarrhea No significant past medical history Surgical History Surgical History [place] teeth extracted Family History Family History Father Cancer Other Diabetes mellitus Family history of alcoholism Family history of arthritis Hypertension Social History Social History Social History: Surrogate decision maker: Bonnie Hollis, mother. Code status: Full code. Smoking status: Never smoker Alcohol intake: current Drinks per week: 3 Substance use: current Substance use type: marijuana Last use: 06/24/20 Living arrangements: with friend(s) Additional living arrangements comments: Lives in [place] with a roommate. Additional occupation/education comments: Beautician. Gender identity (if verbalized by the patient): Female Spiritual care concerns: No Anes - Eval Final PreProcedure Day of Procedure 07/09/20 09:16 Patient weight: normal Heart: regular rate and rhythm Lungs: clear to auscultation and normal air movement Airway: Mallampati scale class II Neurological: alert and oriented Last oral intake: >/= 8 hours ASA classification: II Emergent: no Anesthetic plan: proceed Anesthesia type and monitoring: general GIVS Informed Consent: The patient's anesthetic plan and its attendant risks and benefits were discussed with the patient/family/POA. Questions were solicited and answers provided to the satisfaction of the patient/family/POA.
[2020-07-09 09:28] VITALS: BP 124/85; PULSE 88; RESP 16; TEMP 36.5; O2SAT 100
[2020-07-09] MEDS: LACTATED RINGERS 1,000 ML 150 ML IV CONT (09:35)
[2020-07-09 11:10] VITALS: BP 109/76; PULSE 104; RESP 20; O2SAT 98
[2020-07-09 11:20] VITALS: BP 135/78; PULSE 66; RESP 21; O2SAT 100
[2020-07-09 11:30] VITALS: BP 110/83; PULSE 65; RESP 17; O2SAT 100
== END 2020-07-09 11:42 | disposition home or self-care (01) ==
PROVIDERS: PCP Family Medicine; Visit Provider Internal Medicine Gastroenterology
PROC: 0DJ08ZZ Inspection of Upper Intestinal Tract, Via Natural or Artificial Opening Endoscopic (ICD-10-PCS; CPT 43235; principal; 2020-07-09 10:30)
DX: R19.7 Diarrhea, unspecified (principal); R11.0 Nausea; F12.90 Cannabis use, unspecified, uncomplicated; K29.70 Gastritis, unspecified, without bleeding; R93.3 Abnormal findings on diagnostic imaging of other parts of digestive tract; K29.50 Unspecified chronic gastritis without bleeding
CPT/HCPCS: 43239; 45380; 88305; J2704; J7120

== ENCOUNTER 2021-03-25 14:29 | Observation (INO) | payer MEDICAID, SELFPAY ==
[2021-03-25] VITALS (8 sets, daily range): BP systolic 120–143; BP diastolic 80–110; PULSE 107–131; RESP 16–23; TEMP 36.5; O2SAT 98–100
--- NOTE | ~2021-03-25 | CT_ITS ---
EXAMINATION: CT abdomen pelvis wo con DATE: 03/25/2021 19:29 INDICATION: Vomiting and diarrhea TECHNIQUE: Computed tomography (CT) of the abdomen and pelvis was performed without intravenous contr ast. The dose-length product (DLP) was 173.77 mGy-cm. Automated exposure control and iterative recons truction technique were employed. COMPARISON: 03/24/2020 FINDINGS: The lung bases are clear. The heart size is normal. There are subtle areas of low-attenuati on liver segment IVb adjacent to the gallbladder fossa which were not definitely seen on the comparis on examination. The spleen, pancreas, gallbladder, and adrenal glands are normal. The kidneys are unr emarkable. No pathologically enlarged abdominal or pelvic lymph nodes are identified. There is no luana e intraperitoneal gas or evidence of bowel obstruction. IMPRESSION: 1. Focal low-attenuation of the liver adjacent to the gallbladder fossa of unclear significance which could reflect focal fatty infiltration however evaluation is somewhat limited by the absence of intr avenous contrast. Examination with intravenous contrast may provide some additional information howev er MRI without and with contrast would likely be most beneficial. Reviewed, dictated and finalized at location A. IMPRESSION: 1. Focal low-attenuation of the liver adjacent to the gallbladder fossa of uncl ear significance which could reflect focal fatty infiltration however evaluatio n is somewhat limited by the absence of intravenous contrast. Examination with intravenous contrast may provide some additional information however MRI withou t and with contrast would likely be most beneficial.
--- NOTE | ~2021-03-25 | US_ITS ---
EXAMINATION: US right upper quadrant DATE: 03/26/2021 10:21 INDICATION: Abdominal pain TECHNIQUE: Multiple grayscale and Doppler ultrasound images of the abdomen were obtained. COMPARISON: CT dated 03/25/2021 FINDINGS: The pancreatic head and body are normal in appearance. The pancreatic tail is not visualized. Liver has normal echogenicity and contour, with a smooth surface. No liver lesion identified. No intrahepat ic biliary duct dilation suspected. Portal venous flow was seen in the hepatopetal, normal direction and has normal Doppler waveform. The gallbladder is normal in appearance. There is no cholelithiasis . The common bile duct measures 3 mm, which is normal. Sonographic Casillas sign was reported as negati ve by the outside sales representative. IMPRESSION: 1. Normal right upper quadrant ultrasound. Reviewed, dictated and finalized at location A.
--- NOTE | ~2021-03-25 | XR_ITS ---
EXAMINATION: XR chest 1V portable INDICATION: Sepsis TECHNIQUE: Portable AP chest at 2106 hours COMPARISON: None available FINDINGS: The lungs are free of acute opacities. No pleural effusion or pneumothorax is identified. T he cardiomediastinal silhouette is normal. IMPRESSION: 1. No acute cardiopulmonary abnormality. Reviewed, dictated and finalized at location A.
[2021-03-25 14:52] LABS: Basophils Absolute Auto 0.1 K/mm3 (0.0-0.1); Basophils Percent Auto 0.6 % (0.2-1.2); Hematocrit 44.3 % (37.0-47.0); Hemoglobin 14.9 g/dL (12.0-15.0); Immature Granulocyte Absolute 0.06 K/mm3 (0.00-0.031); Immature Granulocyte Percent A 0.4 % (0-0.5); Lymphocytes Absolute Auto 0.85 K/mm3 (0.9-3.2); Lymphocytes Percent Auto 6.2 % (18.3-44.2); Mean Corpuscular HGB Conc 33.6 g/dl (32-36); Mean Corpuscular Hemoglobin 36.5 pg (26-34); Mean Corpuscular Volume 108.6 fl (80-100); Mean Platelet Volume 9.9 fl (7.4-10.4); Monocytes Absolute Auto 1.2 K/mm3 (0.1-0.6); Monocytes Percent Auto 8.5 % (2.6-8.5); Neutrophils Absolute Auto 11.6 K/mm3 (1.3-6.7); Neutrophils Percent Auto 84.3 % (45.5-73.1); Platelet Count Result 256 k/mm3 (150-375); Red Blood Count 4.08 M/mm3 (4.2-5.4); Red Cell Distribution Width 13.4 % (11.5-14.5); White Blood Count 13.8 K/mm3 (4.5-10.0)
[2021-03-25 15:05] LABS: Alanine Aminotransferase 182 U/L (4-35); Albumin Level 5.7 g/dL (3.5-5.1); Alkaline Phosphatase 146 U/L (38-126); Anion Gap 29 mmol/L (8-16); Aspartate Amino Transferase 605 U/L (14-36); Bilirubin,Total 2.4 mg/dL (0.2-1.3); Blood Urea Nitrogen 9 mg/dL (7-17); Calcium 10.6 mg/dL (8.4-10.2); Carbon Dioxide 11 mmol/L (22-30); Chloride 99 mmol/L (98-107); Estimated CRCL calculation 62 ml/min; Estimated Glomerular Filt Rate > 60; Glucose 99 mg/dL (65-110); Lipase 51 U/L (23-300); Sodium 139 mmol/L (137-145)
[2021-03-25] MEDS: ONDANSETRON INJ 4 MG/2 ML VIAL IV PUSH (17:18)
[2021-03-25] MEDS: PANTOPRAZOLE SODIUM IV 40 MG VIAL IV PUSH (17:18)
[2021-03-25] MEDS: LORazepam INJ (*CRX) 2 MG/ML VIAL 1 MG IV PUSH (17:29)
[2021-03-25 17:34] LABS: Ethanol < 10 mg/dL (<10)
[2021-03-25 17:35] LABS: Lactic Acid Reflex 2.9 mmol/L (0.7-2.1)
[2021-03-25] MEDS: LACTATED RINGERS 1,000 ML 999 ML IV CONT ×2 (19:10→19:11)
--- NOTE | 2021-03-25 19:11 | ED.GENADULT ---
HPI - General Adult General Chief complaint: Nausea/Vomiting/Diarrhea Stated complaint: vomiting and sob Time Seen by Provider: 03/25/21 17:08 Source: patient and RN notes reviewed Mode of arrival: ambulatory Limitations: no limitations History of Present Illness HPI narrative: Patient is a 25-year-old female who presents to emergency department for evaluation of abdominal pain nausea and vomiting that began last night patient notes history of similar occurrences in the past she denies any rectal bleeding melena presents noting some cramping of the abdomen had numerous episodes of emesis had had recent evaluation for this to include upper endoscopic and colonoscopy. She has not taken anything for symptoms. She does note frequent alcohol use and marijuana use Related Data Allergies Allergy/AdvReac Type Severity Reaction Status Date / Time Penicillins Allergy Mild Rash Verified 09/10/20 13:57 Review of Systems Review of Systems: All systems reviewed & are unremarkable except as noted in HPI and below PMFSH Past Medical History Medical History Alcohol use Cannabis abuse Diarrhea No significant past medical history Surgical History Surgical History [place] teeth extracted Family History Family History (Reviewed 09/10/20 @ 13:57 by Ashley Ernandez [facility]) Father Cancer Other Diabetes mellitus Family history of alcoholism Family history of arthritis Hypertension Social History Social History Social History: Surrogate decision maker: Bonnie Hollis, mother. Code status: Full code. Smoking status: Never smoker Alcohol intake: current Drinks per week: 3 Alcohol use details: Drinks whiskey several times a week, unable to qualify how much she drinks. Substance use: current Substance use type: marijuana Last use: 06/24/20 Additional living arrangements comments: Lives in [place] with a roommate. Additional occupation/education comments: Beautician. Gender identity (if verbalized by the patient): Female Spiritual care concerns: No Exam Narrative: GENERAL: Well-appearing, well-nourished, and in no acute distress. HEAD: Normocephalic, atraumatic. EYES: PERRLA and EOMI. ENT: Nares clear, no rhinorrhea or epistaxis. Mucous membranes moist. CHEST: Clear to auscultation. No respiratory distress. No wheezes rales or rhonchi HEART: Regular rate and rhythm. No murmur heard. Normal peripheral pulses. ABDOMEN: Soft, mild tenderness of the upper quadrants of the abdomen, nondistended EXTREMITIES: Normal range of motion. No edema. SKIN: Warm, dry, no rash. NEURO: No focal deficits. Alert and oriented x3. PSYCH: Normal mood and affect. Course Consultations Consultation #1: Spoke with Dr. Lr who will consult in on the morning patient can have clear liquids Date: 03/25/21 Time: 20:54 Consultation #2: Spoke with Dr. phillips who will accept the admission Date: 03/25/21 Vital Signs Vital signs: Vital Signs Temperature 97.7 F 03/25/21 14:31 Pulse Rate 128 H 03/25/21 14:31 Respiratory Rate 18 03/25/21 14:31 Blood Pressure 136/96 H 03/25/21 14:31 Pulse Oximetry 99 03/25/21 14:31 Temperature 97.7 F 03/25/21 14:31 Pulse Rate 115 H 03/25/21 19:43 Respiratory Rate 20 03/25/21 19:40 Blood Pressure 133/89 03/25/21 19:43 Pulse Oximetry 100 03/25/21 19:40 Medical Decision Making [facility] Narrative Medical decision making narrative: Patient with emesis which could be related to gallbladder gastroenteritis alcohol use early pancreatitis she will be kept in hospital clear liquid diet she has had improvement with medications is nontoxic-appearing at this time is been hydrated medicated Vital Signs Vital Signs: Vital Signs Temperature 97.7 F 03/25/21 14:31 Pulse Rate 128 H 10
[2021-03-25 19:16] LABS: Add Urine Microscopic? YES; Appearance Urine Cloudy (Clear); Bilirubin Urine Negative (Negative); Blood Urine Negative (Negative); Color Urine Yellow (Yellow); Glucose Urine UA Negative (Negative); Ketones Urine 2+ mg/dL (Negative); Leukocyte Esterase Ur Negative LEU/UL (Negative); Mucus Urine Rare /lpf; Nitrate Urine Negative (Negative); Protein Urine 1+ mg/dL (Negative); RBC Urine 0-2 /hpf (0-2); Squamous Epithelial Cell Urine Many /hpf (Few); Urobilinogen Urine Negative mg/dL (<2.0); WBC Urine 0-3 /hpf
[2021-03-25 19:39] LABS: Amphetamine Screen Urine Negative (Negative); Barbiturate Screen Urine Negative (Negative); Benzodiazepines Screen Urine Negative (Negative); Cannabinoid Screen Urine Positive (Negative); Cocaine Screen Urine Negative (Negative); Methadone Screen Urine Negative (Negative); Opiate Screen Urine Negative (Negative); Phencyclidine Screen Urine Negative (Negative)
[2021-03-25 20:23] LABS: Reflex Lactic Acid Yes or No Add Lactic
[2021-03-25 21:19] LABS: Lactic Acid 1.4 mmol/L (0.7-2.1)
[2021-03-25] MEDS: SODIUM CHLORIDE 0.9% IV 1,000 ML 125 ML IV CONT (22:52)
--- NOTE | 2021-03-25 23:35 | ADMGEN ---
This patient, Abida Bello, was admitted to Medical Room 347-01. Patient/family oriented to hospital policies and general routines including ID bracelet, bed and alarms, visiting hours, pain management, procedures, bathroom and other care routines, personal items, smoking policy, room service/diet, and visiting hours. Information on how to activate the Rapid Response Team has been discussed. Patient/Family are encouraged to report perceived risks to care and to ask questions if they do not understand what they are told or what they should do.
[2021-03-26] VITALS (10 sets, daily range): BP systolic 108–133; BP diastolic 56–89; PULSE 70–107; RESP 16–18; TEMP 35.7–36.3; O2SAT 100; BMI 19.7
--- NOTE | 2021-03-26 00:47 | PM.IMHP ---
H&P: HPI History of Present Illness Date/Time: 03/26/21 00:47 Chief Complaint: Nausea vomiting Narrative: Patient is a 25-year-old female who presents to emergency department for evaluation of abdominal pain nausea and vomiting that began earlier in the morning. She states she had similar episodes in the past. She has underlying anxiety disorder. She had a history of enterocolitis last year and has been having bowel problems since then. She started having several episodes of vomiting earlier this morning and states she was thinking about her potential interaction with 1 of for client that morning. This usually gives her panicky feeling and she started vomiting and also started having abdominal pain in the upper abdomen. And few episodes of bowel movements which is lo0se. Maurice comes in to the ER for evaluation for this. She does state that she drinks regularly since she has been 20 years old and normally does hard liquor. In the ER she is noted to have tachycardia with mild leukocytosis and remarkably elevated LFTs and getting admitted for further evaluation and management. Our thought alcohol level was less than 10. She is also positive for cannabinoids in her UDS. Abdominal CT scan showed focal low-attenuation of the liver just into the whole gallbladder foci of unclear significance which could reflect focal fatty infiltration however evaluation is somewhat limited by the absence of intravenous contrast. Examination with intravenous contrast may provide some additional information however MRI without and with contrast would likely be most beneficial. Review of Systems Review of Systems: - CONSTITUTIONAL: Denies weight loss, fever and chills. - HEENT: Denies changes in vision and hearing - RESPIRATORY: Denies SOB and cough. - CV: Denies palpitations and CP. - GI: Reports abdominal pain, nausea, vomiting and diarrhea. - : Denies dysuria and urinary frequency. - MSK: Denies myalgia and joint pain. - SKIN: Denies rash and pruritus. - NEUROLOGICAL: Denies headache and syncope. - PSYCHIATRIC: Denies recent changes in mood. Reports anxiety and denies depression. All systems reviewed & are unremarkable except as noted in HPI and below Constitutional: Constitutional: Reports fatigue and Reports weakness Neurologic: Reports weakness Endocrine: Endocrine: Reports fatigue PMFSH Past Medical History Medical History Alcohol use Cannabis abuse Diarrhea No significant past medical history Surgical History Surgical History [place] teeth extracted Family History Family History (Updated 03/26/21 @ 00:05 by Mica Bustamante RN) Father Cancer Hypertension Stomach cancer Grandparent Diabetes mellitus Acute myocardial infarction Hypertension Malignant neoplasm of prostate Sibling Hypertension Other Breast cancer Family history of alcoholism Family history of arthritis Pancreatic cancer Social History Social History Social History: Surrogate decision maker: Bonnie Hollis, mother. Code status: Full code. Smoking status: Never smoker Second hand tobacco smoke exposure: No Alcohol intake: current Drinks per week: 12 Alcohol use details: Drinks whiskey several times a week, unable to qualify how much she drinks. Substance use: current Substance use type: marijuana Last use: 03/24/21 Additional living arrangements comments: Lives in [place] with a roommate. Additional occupation/education comments: Beautician. Gender identity (if verbalized by the patient): Female Spiritual care concerns: No Meds Home Medications and Allergies Home Medications Medication Instructions Recorded Confirmed Type No Home Medications 03/25/21 03/25/21 History Allergies Allergy/AdvReac Type
[2021-03-26 01:29] LABS: Alanine Aminotransferase 143 U/L (4-35); Albumin Level 4.8 g/dL (3.5-5.1); Alkaline Phosphatase 105 U/L (38-126); Anion Gap 22 mmol/L (8-16); Aspartate Amino Transferase 289 U/L (14-36); Bilirubin,Total 1.3 mg/dL (0.2-1.3); Blood Urea Nitrogen 6 mg/dL (7-17); Calcium 9.6 mg/dL (8.4-10.2); Carbon Dioxide 13 mmol/L (22-30); Chloride 101 mmol/L (98-107); Estimated CRCL calculation 72 ml/min; Estimated Glomerular Filt Rate > 60; Glucose 72 mg/dL (65-110); Potassium 3.9 mmol/L (3.4-5.0); Sodium 136 mmol/L (137-145)
[2021-03-26 05:56] LABS: Basophils Absolute Auto 0.1 K/mm3 (0.0-0.1); Basophils Percent Auto 0.6 % (0.2-1.2); Eosinophils Percent Auto 0.3 % (0-4.4); Hematocrit 34.6 % (37.0-47.0); Hemoglobin 11.6 g/dL (12.0-15.0); Immature Granulocyte Absolute 0.02 K/mm3 (0.00-0.031); Immature Granulocyte Percent A 0.2 % (0-0.5); Lymphocytes Absolute Auto 2.51 K/mm3 (0.9-3.2); Lymphocytes Percent Auto 29.2 % (18.3-44.2); Mean Corpuscular HGB Conc 33.5 g/dl (32-36); Mean Corpuscular Volume 107.5 fl (80-100); Monocytes Absolute Auto 1.4 K/mm3 (0.1-0.6); Monocytes Percent Auto 16.6 % (2.6-8.5); Neutrophils Absolute Auto 4.6 K/mm3 (1.3-6.7); Neutrophils Percent Auto 53.1 % (45.5-73.1); Platelet Count Result 187 k/mm3 (150-375); Red Blood Count 3.22 M/mm3 (4.2-5.4); Red Cell Distribution Width 13.1 % (11.5-14.5); White Blood Count 8.6 K/mm3 (4.5-10.0)
[2021-03-26 06:10] LABS: Alanine Aminotransferase 115 U/L (4-35); Albumin Level 3.8 g/dL (3.5-5.1); Alkaline Phosphatase 85 U/L (38-126); Anion Gap 12 mmol/L (8-16); Aspartate Amino Transferase 202 U/L (14-36); Bilirubin,Total 1.1 mg/dL (0.2-1.3); Blood Urea Nitrogen 5 mg/dL (7-17); Calcium 8.7 mg/dL (8.4-10.2); Carbon Dioxide 16 mmol/L (22-30); Chloride 105 mmol/L (98-107); Estimated CRCL calculation 72 ml/min; Estimated Glomerular Filt Rate > 60; Glucose 67 mg/dL (65-110); Sodium 133 mmol/L (137-145)
--- NOTE | 2021-03-26 07:07 | WPDGICN ---
Assessment and Plan Assessment and plan (1) Elevated liver enzymes: Code(s): R74.8 - Abnormal levels of other serum enzymes Status: Acute Assessment and Plan: her AST was 78 months ago and now is over 600. Also bilirubin is elevated. This could be biliary, but she is not having any pain. Because the AST is much higher than a ALT, I suspect that this is all due to alcohol. Right upper quadrant ultrasound has been ordered to rule out biliary tract disease (2) Alcohol abuse: Code(s): F10.10 - Alcohol abuse, uncomplicated Status: Acute Assessment and Plan: we discussed the fact that she needs to eliminate alcohol. If in fact she has cut down her use in the past year and she states that her liver is extremely sensitive to whenever she is consuming. She admits to a strong family history of alcohol abuse. I told her that there is a high probability of her getting cirrhosis without changing her use (3) Intractable vomiting: Qualifiers: Nausea presence: with nausea Vomiting type: unspecified Qualified Code(s): R11.2 - Nausea with vomiting, unspecified Code(s): R11.10 - Vomiting, unspecified Status: Acute Assessment and Plan: this she states is partly due to anxiety but also could be cannabinoid syndrome GI Consult Note Consult date/time: 03/26/21 07:07 HPI: Abida Bello is a 25 year old female was admitted with a great deal of nausea. She states that she often wakes up with nausea morning possibly in part related to anxiety. She also has continuing issues with diarrhea. She has tried taking Imodium at times this will help infected kg Dr. almost constipated and therefore she is afraid to use it every day. She has had no recent fever. She denies abdominal pain. In the emergency room she was found to have markedly elevated liver enzymes. Her a ST which was 75 nine months ago he is now 605 on admission, although has come down to just over 200 this morning. Also her bilirubin was elevated. She does acknowledge that she drinks hard liquor almost every day. She prefers vodka and some cranberry flavored beverage. She acknowledges that she has been using hard liquor for several years and that most of her family drinks quite a bit. She is not aware of any family history of liver disease. She has been tested for hepatitis and these serologies all negative. She states that when she 1st started drinking she would have times when she knew that it made her sick but she has never had which she would call withdrawal syndrome or tremors Review of Systems Review of Systems: All systems reviewed & are unremarkable except as noted in HPI and below PMFSH Past Medical History Medical History Alcohol use Cannabis abuse Diarrhea No significant past medical history Surgical History Surgical History [place] teeth extracted Family History Family History Father Cancer Hypertension Stomach cancer Grandparent Diabetes mellitus Acute myocardial infarction Hypertension Malignant neoplasm of prostate Sibling Hypertension Other Breast cancer Family history of alcoholism Family history of arthritis Pancreatic cancer Social History Social History Social History: Surrogate decision maker: Bonnie Hollis, mother. Code status: Full code. Smoking status: Never smoker Second hand tobacco smoke exposure: No Alcohol intake: current Drinks per week: 12 Alcohol use details: Drinks whiskey several times a week, unable to qualify how much she drinks. Substance use: current Substance use type: marijuana Last use: 03/24/21 Additional living arrangements comments: Lives in [place] with a roommate. Additional oc
[2021-03-26] MEDS: PANTOPRAZOLE SODIUM IV 40 MG VIAL IV PUSH (08:49)
--- NOTE | 2021-03-26 09:36 | PM.IMPN ---
Progress Note: A&P Assessment and Plan (1) Elevated liver enzymes: Code(s): R74.8 - Abnormal levels of other serum enzymes Status: Acute (2) Alcohol abuse: Code(s): F10.10 - Alcohol abuse, uncomplicated Status: Acute (3) Diarrhea: Code(s): R19.7 - Diarrhea, unspecified Status: Acute (4) Cannabis abuse: Code(s): F12.10 - Cannabis abuse, uncomplicated Status: Acute (5) Intractable vomiting: Qualifiers: Nausea presence: with nausea Vomiting type: unspecified Qualified Code(s): R11.2 - Nausea with vomiting, unspecified Code(s): R11.10 - Vomiting, unspecified Status: Acute (6) Metabolic acidosis: Code(s): E87.2 - Acidosis Status: Acute (7) Acute dehydration: Code(s): E86.0 - Dehydration Status: Acute (8) Lactic acidosis: Code(s): E87.2 - Acidosis Status: Acute Additional Plan # abdominal pain/nausea/vomiting/diarrhea IV hydration IV analgesics IV emetics. # elevated liver enzymes likely alcohol induced CT abdomen reviewed get on right upper quadrant ultrasound # alcohol abuse counseled on cutting back on alcohol use continue [facility] protocol for alcohol withdrawal # metabolic acidosis continue IV hydration # lactic acidosis repeat normal # severe dehydration/alcoholic ketoacidosis # leukocytosis no signs of infection likely reactive # DVT prophylaxis SCDs # full code status Subjective Date/time seen: 03/26/21 09:36 Interval history: I agree with current assessment and plan; will continue to monitor. Objective Data Vital Signs Vital Signs: Vital Signs - 24 hr 03/25/21 14:31 03/25/21 17:05 03/25/21 18:49 Temperature 36.5 C Pulse Rate 128 H 131 H 119 H Respiratory Rate 18 18 16 Blood Pressure 136/96 H 121/110 H 120/89 Pulse Oximetry 99 98 100 03/25/21 19:40 03/25/21 19:42 03/25/21 19:43 Temperature Pulse Rate 110 H 107 H 115 H Respiratory Rate 20 Blood Pressure 130/80 134/98 H 133/89 Pulse Oximetry 100 03/25/21 21:44 03/25/21 23:11 03/26/21 00:00 Temperature 35.7 C L Pulse Rate 129 H 116 H 107 H Respiratory Rate 23 H 20 16 Blood Pressure 135/99 H 143/96 H 133/87 Pulse Oximetry 100 100 100 03/26/21 04:45 03/26/21 05:38 Temperature 35.9 C L Pulse Rate 100 Respiratory Rate 16 Blood Pressure 110/56 L 110/56 L Pulse Oximetry 100 Intake/Output Intake/Output: Intake & Output 03/23/21 03/24/21 03/25/21 03/26/21 23:59 23:59 23:59 23:59 Intake Total 2049 1000 Output Total 300 Balance 2049 700 Meds/Results Medications: Active Medications Generic Name Dose Route Start Last Admin Trade Name Freq PRN Reason Stop Dose Admin Acetaminophen 650 mg in 65 mls @ 260 mls/hr 03/25/21 20:56 Ofirmev 650 Mg Ivpb IVPB 03/26/21 20:55 Q6H PRN Mild Pain (1-3) or Fever Morphine Sulfate 2 mg 03/26/21 00:55 Morphine Sulfate (*Crx) 2 Mg/Ml Inj IV PUSH Q4H PRN Pain Rated 7-10 Ondansetron HCl 4 mg 03/25/21 20:56 Ondansetron Inj 4 Mg/2 Ml Vial IV PUSH Q4H PRN Nausea Pantoprazole Sodium 40 mg 03/26/21 09:00 03/26/21 08:49 Pantoprazole Sodium Iv 40 Mg Vial IV PUSH 40 mg QAM ARIAN Administration Radiology Results: ITS Impressions Abdomen/Pelvis CT 03/25/21 19:34 IMPRESSION: 1. Focal low-attenuation of the liver adjacent to the gallbladder fossa of unclear significance which could reflect focal fatty infiltration however evaluation is somewhat limited by the absence of intravenous contrast. Examination with intravenous contrast may provide some additional information however MRI without and with contrast would likely be most beneficial. Chest X-Ray 03/25/21 21:32 IMPRESSION: 1. No acute cardiopulmonary abnormality. Labs Labs: Laboratory Results - last 24 hr 03/25/21 03/25/21 03/25/21 14:39 14:39 17:19 WBC 13.8 H RBC 4.08 L Hgb 14.9 Hct 44.3 MCV 108.6 H MCH 36.
[2021-03-27] VITALS: PULSE 64
[2021-03-27 04:27] VITALS: PULSE 60
[2021-03-27 04:33] VITALS: BP 138/83; PULSE 82; RESP 16; TEMP 36.6; O2SAT 98
[2021-03-27 06:24] LABS: Hematocrit 36.7 % (37.0-47.0); Hemoglobin 12.4 g/dL (12.0-15.0); Mean Corpuscular HGB Conc 33.8 g/dl (32-36); Mean Corpuscular Hemoglobin 36.3 pg (26-34); Mean Corpuscular Volume 107.3 fl (80-100); Mean Platelet Volume 10.2 fl (7.4-10.4); Platelet Count Result 168 k/mm3 (150-375); Red Blood Count 3.42 M/mm3 (4.2-5.4); Red Cell Distribution Width 12.5 % (11.5-14.5); White Blood Count 5.9 K/mm3 (4.5-10.0)
[2021-03-27 06:41] LABS: Anion Gap 12 mmol/L (8-16); Blood Urea Nitrogen 3 mg/dL (7-17); Calcium 9.4 mg/dL (8.4-10.2); Carbon Dioxide 22 mmol/L (22-30); Chloride 101 mmol/L (98-107); Estimated CRCL calculation 93 ml/min; Estimated Glomerular Filt Rate > 60; Glucose 78 mg/dL (65-110); Potassium 3.8 mmol/L (3.4-5.0); Sodium 135 mmol/L (137-145)
--- NOTE | 2021-03-27 07:05 | WPDGIPROGNO ---
Progress Note: A&P Assessment and Plan (1) Elevated liver enzymes: Code(s): R74.8 - Abnormal levels of other serum enzymes Status: Acute Assessment and Plan: her AST was 78 months ago and now is over 600. Also bilirubin is elevated. This could be biliary, but she is not having any pain. Because the AST is much higher than a ALT, I suspect that this is all due to alcohol. Right upper quadrant ultrasound has been ordered to rule out biliary tract disease, and is negative. I explained to her that liver enzyme elevations are apparently all from alcohol. She confided with me that she fact was thrown out of her house 2 years ago because of an alcohol problem. She then got arrested for DUI, and actually was homeless for a while. I advised her to make an appointment to see her primary care physician and I will see her in the office in 4 weeks as well (2) Alcohol abuse: Code(s): F10.10 - Alcohol abuse, uncomplicated Status: Acute Assessment and Plan: we discussed the fact that she needs to eliminate alcohol. If in fact she has cut down her use in the past year and she states that her liver is extremely sensitive to whenever she is consuming. She admits to a strong family history of alcohol abuse. I told her that there is a high probability of her getting cirrhosis without changing her use She states that she lives with her boyfriend who is very supportive. She has spoken to him about the need to stop drinking. I reminded her that she would have to get a whole alcohol of the house and she states that she and her boyfriend have discussed this. (3) Intractable vomiting: Qualifiers: Nausea presence: with nausea Vomiting type: unspecified Qualified Code(s): R11.2 - Nausea with vomiting, unspecified Code(s): R11.10 - Vomiting, unspecified Status: Acute Assessment and Plan: this she states is partly due to anxiety but also could be cannabinoid syndrome. I told her that if she stops drinking that nausea that she has every morning would probably disappear. Explain that she needs to adopt a healthy diet as well (4) Lactic acidosis: Code(s): E87.2 - Acidosis Status: Acute Assessment and Plan: I told her that the lactic acidosis is due to the fact that she was dehydrated and again if she stops drinking she should have this problem began. (5) Macrocytosis: Code(s): D75.89 - Other specified diseases of blood and blood-forming organs Status: Acute Assessment and Plan: I discussed with her the toxic effects of alcohol on the bone marrow, that it interferes with folic acid utilization and that she could develop anemia due to this unless she stops drinking Subjective Date/time seen: 03/27/21 07:05 She feels better today. She did not sleep very well but nausea has subsided. She is denying any significant abdominal pain and is hungry. She has shown no signs of withdrawal syndrome Review of Systems Review of Systems: All systems reviewed & are unremarkable except as noted in HPI and below Exam Const: General: cooperative and no acute distress Nutritional Appearance: average body habitus Limitations: no limitations Resp: Auscultation: clear to auscultation bilaterally GI: GI Palp: No abdominal tenderness, Yes Soft to palpation and Yes No hepatosplenomegaly present Auscultation: normal bowel sounds Objective Data Vital Signs Vital Signs: Vital Signs - 24 hr 03/26/21 08:00 03/26/21 12:00 03/26/21 14:13 Temperature Pulse Rate Pulse Rate [Right Radial] Respiratory Rate Blood Pressure 110/56 L 108/60 Pulse Oximetry 100 03/26/21 14:30 03/26/21 16:00 03/26/21 20:00 Temperature 35.8 C L Pulse Rate 70 Pulse Rate [Right Radial] 72 Respiratory Rate 18 Blood Pressure 127/89 127/89 Pulse Oximetry 100 03/26/21 20:52 03/27/21 00:00 03/27/21 04:27 Temperature 36.3 C L Pulse Rate 71 P
[2021-03-27 08:30] VITALS: PULSE 88
[2021-03-27] MEDS: PANTOPRAZOLE SODIUM IV 40 MG VIAL IV PUSH (08:44)
--- NOTE | 2021-03-27 12:21 | PM.DS ---
DS: Admitting Diagnosis Discharge Date 03/27/2021 Admitting Diagnosis abdominal pain/nausea/vomiting/diarrhea DS: Discharge Diagnosis Discharge Diagnosis (1) Elevated liver enzymes: Code(s): R74.8 - Abnormal levels of other serum enzymes Status: Acute Assessment and Plan: Likely 2/[address] abdomen reviewed RUQ US neg (2) Alcohol abuse: Code(s): F10.10 - Alcohol abuse, uncomplicated Status: Acute Assessment and Plan: Cessation advised CIWA 0 (3) Diarrhea: Code(s): R19.7 - Diarrhea, unspecified Status: Acute Assessment and Plan: Resolved (4) Cannabis abuse: Code(s): F12.10 - Cannabis abuse, uncomplicated Status: Acute Assessment and Plan: Cessation advised (5) Intractable vomiting: Qualifiers: Nausea presence: with nausea Vomiting type: unspecified Qualified Code(s): R11.2 - Nausea with vomiting, unspecified Code(s): R11.10 - Vomiting, unspecified Status: Acute Assessment and Plan: Resolved S/p IV hydration IV analgesics IV emetics. (6) Metabolic acidosis: Code(s): E87.2 - Acidosis Status: Acute Assessment and Plan: Likely 2/2 above (7) Acute dehydration: Code(s): E86.0 - Dehydration Status: Acute Assessment and Plan: Improved (8) Lactic acidosis: Code(s): E87.2 - Acidosis Status: Acute Assessment and Plan: # DVT prophylaxis SCDs # full code status DS: Summary Hospital Course Hospital Course: 25-year-old female who presented to emergency department for evaluation of abdominal pain nausea and vomiting that began on the morning of admission. She reported that she had similar episodes in the past. She has underlying anxiety disorder. She had a history of enterocolitis last year and has been having bowel problems since then. 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 This usually gives her panicky feeling and she started vomiting and also started having abdominal pain in the upper abdomen. And few episodes of bowel movements which were loose. She came to the ER for evaluation for this. She reported that she drinks regularly since she has been 20 years old and normally does hard liquor. In the ER, she was found to with tachycardia with mild leukocytosis and remarkably elevated LFTs and getting admitted for further evaluation and management. Her blood alcohol level was less than 10. Her UDS was positive for cannabinoids. Abdominal CT scan showed focal low-attenuation of the liver just into the whole gallbladder foci of unclear significance which could reflect focal fatty infiltration however evaluation is somewhat limited by the absence of intravenous contrast. Examination with intravenous contrast may provide some additional information however MRI without and with contrast would likely be most beneficial. GI was consulted and the patient was admitted. The patient had a RUQ US which was negative. Her nausea, vomiting and diarrhea have resolved. She is tolerating oral intake and GI agrees with discharge. The patient is hemodynamically stable and will discharge home. She has been advised to follow up with her PCP and gastroenterology. Time Spent with Patient Time attestation: Total time spent providing and/or coordinating discharge services: Time spent: Greater than 30 minutes Exam Narrative: GENERAL: Well-appearing, well-nourished, anxious looking and in no acute distress. HEAD: Normocephalic, atraumatic. EYES: EOMI. ENT: Mucous membranes moist. CHEST: Clear to auscultation. HEART: Regular rate and rhythm. Normal peripheral pulses. ABDOMEN: Soft, mild tenderness of the upper quadrants of the abdomen, nondistended EXTREMITIES: Normal range of motion. No edema. SKIN: Warm, dry, no rash. NEURO: No focal deficits. Lexi
== END 2021-03-27 13:30 | disposition home or self-care (01) ==
LOC: ANHED 20:55 → ANH3MED 21:55
PROVIDERS: Emergency Medicine Emergency Medical Services; General Practice; Nurse Practitioner Adult Health; Admitting Provider Internal Medicine; Emergency Provider Family Medicine; PCP Family Medicine; Visit Provider Internal Medicine
DX: R74.8 Abnormal levels of other serum enzymes (principal); E86.0 Dehydration; E87.2 Acidosis; F10.10 Alcohol abuse, uncomplicated; R10.9 Unspecified abdominal pain; F12.10 Cannabis abuse, uncomplicated
CPT/HCPCS: 36415; 71045; 74176; 76705; 80048; 80053; 80307; 81001; 81025; 83605; 83690; 85025; 85027; 87040; 96361; 96365; 96374; 96375; 99285; C9113; G0378; G0379; J0696; J2060; J2270; J2405; J7030; J7050; J7120

== ENCOUNTER 2022-05-16 17:48 | Emergency (ER) | payer OTHER, SELFPAY | END 2022-05-16 18:32 | disposition left against medical advice (07) | PROVIDERS: Emergency Provider Internal Medicine Hematology & Oncology; PCP Family Medicine | DX: Z53.21 Procedure and treatment not carried out due to patient leaving prior to being seen by health care provider (principal) | CPT/HCPCS: 99199 ==

== ENCOUNTER 2022-09-24 10:18 | Outpatient (CLI) | payer OTHER, SELFPAY ==
[2022-09-24 10:59] LABS: LDL Cholesterol Direct 88 mg/dL
[2022-09-24 11:08] LABS: Cholesterol 290 mg/dL (0-200); Triglycerides 88 mg/dL (<150)
[2022-09-24 11:09] LABS: HDL Direct 170 mg/dL
== END 2022-09-24 10:19 | disposition home or self-care (01) ==
PROVIDERS: PCP Family Medicine; Visit Provider Internal Medicine Cardiovascular Disease
DX: R00.0 Tachycardia, unspecified (principal)
CPT/HCPCS: 36415; 80061

== ENCOUNTER 2023-01-10 07:12 | Observation (INO) | payer OTHER, SELFPAY ==
[2023-01-10] VITALS (26 sets, daily range): BP systolic 105–144; BP diastolic 69–101; PULSE 109–168; RESP 16–38; TEMP 36.5–36.9; O2SAT 97–100; BMI 21.6
--- NOTE | ~2023-01-10 | CT_ITS ---
EXAMINATION: CT abdomen pelvis w con DATE: 01/10/2023 13:48 INDICATION: Nausea and vomiting. Abdominal pain. TECHNIQUE: Computed tomography (CT) of the abdomen and pelvis was performed with 100 mL Omnipaque 350 intravenous contrast. Automated exposure control and iterative reconstruction technique were employe d. The dose-length product was 238.73 mGy-cm. COMPARISON: CT abdomen and pelvis 03/25/2021 FINDINGS: The visualized portions of the lung bases are clear without pneumonia or pleural effusion. The heart size is normal. No pericardial effusion. There is diffuse hepatic steatosis. The gallbladde r, spleen, pancreas, adrenal glands, and kidneys are normal. There are no dilated loops of bowel. The appendix is normal. No pathologically enlarged lymph nodes. There is no free intraperitoneal fluid. There is mild lumbar spondylosis. IMPRESSION: 1. Diffuse hepatic steatosis. Reviewed, dictated and finalized at location A.
--- NOTE | 2023-01-10 07:16 | ECG_ITS ---
Measurements Intervals [place] Rate: 159 P: 87 IL: 86 QRS: 76 QRSD: 73 T: 78 QT: 295 QTc: 481 Interpretive Statements SINUS TACHYCARDIA WITH SHORT IL INTERVAL, POSSIBLE ATRIAL FLUTTER NONSPECIFIC ST & T-WAVE ABNORMALITY ABNORMAL ECG NO PREVIOUS ECG AVAILABLE FOR COMPARISON Electronically Signed On 01-10-2023 10:28:27 CDT by Eron Carter M.D.
--- NOTE | 2023-01-10 07:32 | ED.NAVMDI ---
HPI - Nausea/Vomiting/Diarrhea General Chief complaint: Arrhythmia/Palpitations Stated complaint: nausea Time Seen by Provider: 01/10/23 07:21 History of Present Illness HPI Narrative: Pt presents with recurrent vomiting and nausea for several days. Pt also complains of rapid HR. Pt has history of similar episodes in past and has been seen by GI and cardiology. tachycardia seems to be sinus tach. Pt says has not used cannabis recently. Pt unable to keep fluids down. Pt denies CP. Related Data Home Medications Medication Instructions Recorded Confirmed ondansetron 8 mg disintegrating 8 mg PO BID PRN Nausea And Vomiting 01/10/23 01/10/23 tablet Allergies Allergy/AdvReac Type Severity Reaction Status Date / Time Penicillins Allergy Mild Rash Verified 01/10/23 08:23 Review of Systems Review of Systems: All systems reviewed & are unremarkable except as noted in HPI and below PMFSH Past Medical History Medical History (Updated 01/10/23 @ 16:37 by Ariane Horn NP) Alcohol use Anxiety Cannabis abuse Diarrhea Surgical History Surgical History [place] teeth extracted Family History Family History Father Cancer Hypertension Stomach cancer Grandparent Diabetes mellitus Acute myocardial infarction Hypertension Malignant neoplasm of prostate Sibling Hypertension Other Breast cancer Family history of alcoholism Family history of arthritis Pancreatic cancer Social History Social History (Updated 01/10/23 @ 16:40 by Ariane Horn NP) Social History: She is single without any children. She lives with roommates. She is currently employed as a employment advisor Surrogate decision maker: Bonnie Holils, mother. Code status: Full code. Smoking status: Never smoker Second hand tobacco smoke exposure: No Alcohol intake: current Drinks per week: 10 Alcohol use details: Drinks whiskey several times a week, unable to qualify how much she drinks. Substance use: current Substance use type: marijuana Other substance usage details: marijuana is smoked Last use: 03/24/21 Lack of Transportation: No Lack of Food: Never True Current Housing: I Have Housing Concerned About Future Housing: No Difficulty Paying Gas/Electric Bills: No Difficulty Paying for Meds: No Currently Unemployed: No Education: Trade/Vocational Certificate Difficulty w/ Childcare or Family Care: No Living arrangements: with friend(s) Additional living arrangements comments: Lives in [place] with a roommate. Additional occupation/education comments: Beautician. Gender identity (if verbalized by the patient): Female Spiritual care concerns: No Exam Const: General: healthy appearing and no acute distress Nutritional Appearance: well nourished Orientation/consciousness: patient oriented x3 Limitations: no limitations HENMT: Mouth: Yes dry mucous membranes Eyes: Conjunctivae: conjunctivae normal Resp: Effort & Inspection: normal respiratory effort Auscultation: clear to auscultation bilaterally Cardio: Rate: tachycardic Rhythm: regular rhythm GI: GI Palp: Yes Soft to palpation and Yes Tenderness to palpation present (GI) (epigastric region) Auscultation: normal bowel sounds Back/Spine/Pelvis: Back: no CVA tenderness Skin: General skin exam: normal color Rashes: no rashes Wounds: no wounds Neuro: General: patient oriented x3, moves all extremities and no meningeal signs Speech: normal speech Extrem: General: normal to inspection and no clubbing, cyanosis or edema Psych: Mental Status: mental status grossly normal Affect: Anxious affect present Attitude: cooperative Course Vital Signs Vital signs: Vital Signs Temperature 97.7 F 01/10/23 07:10 Pulse Rate 162 H 01/10/23 07:10 Respiratory Rate 20 01/10/23 07:10 Blood Pressure 141/1
[2023-01-10] MEDS: ONDANSETRON INJ 4 MG/2 ML VIAL IV PUSH (07:44)
[2023-01-10] MEDS: SODIUM CHLORIDE 0.9% IV 1,000 ML 999 ML IV CONT ×2 (07:44→08:46)
[2023-01-10 07:50] LABS: Hematocrit 47.4 % (37.0-47.0); Hemoglobin 14.7 g/dL (12.0-15.0); Mean Corpuscular Hemoglobin 34.9 pg (26-34); Mean Corpuscular Volume 112.6 fl (80-100); Mean Platelet Volume 10.4 fl (7.4-10.4); Platelet Count Result 273 k/mm3 (150-375); Red Blood Count 4.21 M/mm3 (4.2-5.4); Red Cell Distribution Width 12.4 % (11.5-14.5); White Blood Count 16.8 K/mm3 (4.5-10.0)
[2023-01-10 08:00] LABS: Band Neutrophils Percent 19 % (0-6); Metamyelocytes Percent 3 %; Monocytes Percent Manual 3 % (3-9); Neutrophils Absolute Manual 11.59 K/mm3 (1.7-7.2); Neutrophils Percent Manual 50 % (46-73); Platelet Estimate Adequate (Adequate); Total Cells Counted 100
[2023-01-10 08:01] LABS: Schistocytes None Seen (NORMAL)
[2023-01-10 08:02] LABS: Albumin Level 5.8 g/dL (3.5-5.1); Alkaline Phosphatase 177 U/L (38-126); Aspartate Amino Transferase 425 U/L (14-36); Bilirubin,Total 1.2 mg/dL (0.2-1.3); Blood Urea Nitrogen 5 mg/dL (7-17); Calcium 9.7 mg/dL (8.4-10.2); Carbon Dioxide < 5 mmol/L (22-30); Chloride 98 mmol/L (98-107); Estimated CRCL calculation 59 ml/min; Estimated Glomerular Filt Rate > 60; Glucose 83 mg/dL (65-110); Potassium 3.8 mmol/L (3.4-5.0); Sodium 144 mmol/L (137-145)
[2023-01-10 08:06] LABS: Alanine Aminotransferase 254 U/L (6-35); Lipase 49 U/L (23-300)
[2023-01-10] MEDS: PROCHLORPERAZINE EDISYLATE 10 MG/2 ML VIAL IV PUSH (08:10)
[2023-01-10 08:16] LABS: Beta HCG Quantitative < 2.39 mIU/ML
[2023-01-10] MEDS: LORazepam INJ (*CRX) 2 MG/ML VIAL 1 MG IV PUSH (08:29)
--- NOTE | 2023-01-10 08:34 | PC.NURSE ---
ERP orders for a gastric occult reading. RN tests pt's emesis and card came back positive. Alerted ERP.
[2023-01-10 09:11] LABS: Hematocrit 39.8 % (37.0-47.0); Hemoglobin 12.2 g/dL (12.0-15.0)
[2023-01-10] MEDS: SODIUM CHLORIDE 0.9% IV 1,000 ML 125 ML IV CONT ×2 (09:27→18:29)
[2023-01-10] MEDS: PANTOPRAZOLE SODIUM IV 40 MG VIAL IV PUSH (10:35)
--- NOTE | 2023-01-10 10:57 | ADMIMU ---
This patient, Abida Bello, was admitted to IMU status, and placed in Intensive Care Unit-3. Patient/family oriented to hospital policies and general routines including ID bracelet, bed and alarms, visiting hours, pain management, procedures, bathroom and other care routines, personal items, smoking policy, room service/diet, and visiting hours. Valuables list has been completed. Information on how to activate the Rapid Response Team has been discussed. Patient/Family are encouraged to report perceived risks to care and to ask questions if they do not understand what they are told or what they should do.
--- NOTE | 2023-01-10 12:45 | PM.IMHP ---
H&P: HPI History of Present Illness Date/Time: 01/10/23 12:45 Chief Complaint: Arrhythmia Narrative: This is a 27-year-old female patient who has a history of gastritis. The patient has had chronic GERD for over 3 years. The patient does not take omeprazole on a daily basis anymore. The patient also has a history of sinus tachycardia of which she takes metoprolol. The patient has had an EGD approximately 2-3 years ago was found that she has gastritis. The patient now comes in with recurrent vomiting and nausea for several days. It was noted that her emesis was blood streaked. Patient was tachycardic today heart rate in the 140s. She stated she has not use cannabis recently. Abdominal pelvis CT was read as diffuse hepatic steatosis. GI has been consulted. The patient is being admitted to observation status on the date of service of 01/10/2023. Review of Systems Review of Systems: All systems reviewed & are unremarkable except as noted in HPI and below Constitutional: Constitutional: Reports as per HPI and Reports no additional constitutional complaints Eyes: Eyes: Reports as per HPI and Reports no additional eye complaints ENT: Reports system reviewed and no additional complaints, except as documented and Reports Normal hearing present Cardiovascular: Cardiovascular: Reports no additional cardiovascular complaints Respiratory: Respiratory: Reports no additional respiratory complaints and Reports no additional respiratory complaints Gastrointestinal: Gastrointestinal: Reports as per HPI and Reports no additional gastrointestinal complaints Musculoskeletal: Musculoskeletal: Reports no additional musculoskeletal complaints Integumentary/Breasts: Skin/Breast: Reports system reviewed and no additional complaints, except as docu and Reports as per HPI Neurologic: Reports system reviewed and no additional complaints, except as documented, Reports as per HPI and Reports Normal hearing present Psychiatric: Psychiatric: Reports no additional psychiatric complaints and Reports as per HPI Endocrine: Endocrine: Reports no additional endocrine complaints Hematologic/Lymphatic: Hematologic/Lymphatic: Reports no additional hematologic/lymphatic complaints Allergic/Immunologic: Allergic/Immunologic: Reports no additional allergic/immunologic complaints [facility] Past Medical History Medical History (Updated 01/10/23 @ 16:37 by Ariane Horn NP) Alcohol use Anxiety Cannabis abuse Diarrhea Surgical History Surgical History [place] teeth extracted Family History Family History Father Cancer Hypertension Stomach cancer Grandparent Diabetes mellitus Acute myocardial infarction Hypertension Malignant neoplasm of prostate Sibling Hypertension Other Breast cancer Family history of alcoholism Family history of arthritis Pancreatic cancer Social History Social History (Updated 01/10/23 @ 16:40 by Ariane Horn NP) Social History: She is single without any children. She lives with roommates. She is currently employed as a rn transport Surrogate decision maker: Bonnie Hollis, mother. Code status: Full code. Smoking status: Never smoker Second hand tobacco smoke exposure: No Alcohol intake: current Drinks per week: 10 Alcohol use details: Drinks whiskey several times a week, unable to qualify how much she drinks. Substance use: current Substance use type: marijuana Other substance usage details: marijuana is smoked Last use: 03/24/21 Lack of Transportation: No Lack of Food: Never True Current Housing: I Have Housing Concerned About Future Housing: No Difficulty Paying Gas/Electric Bills: No Difficulty Paying for Meds: No Currently Unemployed: No Education: Trade/Vocational Certificate Difficulty w/ Childcare or Family Care: No Living arrangements: [facility]
[2023-01-10] MEDS: ACETAMINOPHEN 325 MG TABLET 650 MG PO (13:18)
[2023-01-10] MEDS: PANTOPRAZOLE SODIUM IV 80 MG in SODIUM CHLORIDE 0.9% IV 500 ML 50 MG IV CONT ×2 (13:51→23:43)
[2023-01-10 14:40] LABS: Hemoglobin 11.1 g/dL (12.0-15.0)
[2023-01-10 17:52] LABS: Appearance Urine Clear (Clear); Bacteria Urine None Seen /hpf; Bilirubin Urine Negative (Negative); Blood Urine 3+ (Negative); Color Urine Yellow (Yellow); Glucose Urine UA Negative (Negative); Ketones Urine 2+ mg/dL (Negative); Leukocyte Esterase Ur Negative LEU/UL (Negative); Nitrate Urine Negative (Negative); Non Pathogenic Casts 0-2; Protein Urine Trace mg/dL (Negative); RBC Urine 0-2 /hpf (0-2); Squamous Epithelial Cell Urine None seen /hpf (Few); Urobilinogen Urine 0.2 mg/dL (<2.0); WBC Urine 0-5 /hpf
[2023-01-10 18:06] LABS: Specific Grav Ur 1.052 (1.001-1.035)
[2023-01-10 18:07] LABS: Add Urine Microscopic? YES
[2023-01-10] MEDS: THIAMINE HCL 200 MG/2 ML VIAL 100 MG IV PUSH (18:27)
[2023-01-10 18:36] LABS: Glucose Point of Care 132 mg/dl (65-105)
[2023-01-10 21:41] LABS: Hematocrit 35.5 % (37.0-47.0); Hemoglobin 11.5 g/dL (12.0-15.0)
[2023-01-10 23:50] LABS: Glucose Point of Care 79 mg/dl (65-105)
[2023-01-11] VITALS (20 sets, daily range): BP systolic 107–139; BP diastolic 76–97; PULSE 81–135; RESP 12–24; TEMP 36.2–36.8; O2SAT 98–100
[2023-01-11 03:52] LABS: Basophils Percent Auto 0.3 % (0.2-1.2); Eosinophils Percent Auto 0.2 % (0-4.4); Hematocrit 35.1 % (37.0-47.0); Hemoglobin 11.3 g/dL (12.0-15.0); Immature Granulocyte Absolute 0.01 K/mm3 (0.00-0.031); Immature Granulocyte Percent A 0.1 % (0-0.5); Lymphocytes Absolute Auto 2.21 K/mm3 (0.9-3.2); Lymphocytes Percent Auto 22.9 % (18.3-44.2); Mean Corpuscular HGB Conc 32.2 g/dl (32-36); Mean Corpuscular Hemoglobin 33.9 pg (26-34); Mean Corpuscular Volume 105.4 fl (80-100); Mean Platelet Volume 9.7 fl (7.4-10.4); Monocytes Absolute Auto 1.6 K/mm3 (0.1-0.6); Monocytes Percent Auto 16.3 % (2.6-8.5); Neutrophils Absolute Auto 5.8 K/mm3 (1.3-6.7); Neutrophils Percent Auto 60.2 % (45.5-73.1); Platelet Count Result 167 k/mm3 (150-375); Red Blood Count 3.33 M/mm3 (4.2-5.4); Red Cell Distribution Width 12.1 % (11.5-14.5); White Blood Count 9.7 K/mm3 (4.5-10.0)
[2023-01-11 04:07] LABS: Alanine Aminotransferase 141 U/L (6-35); Albumin Level 3.6 g/dL (3.5-5.1); Alkaline Phosphatase 75 U/L (38-126); Anion Gap 12 mmol/L (8-16); Aspartate Amino Transferase 153 U/L (14-36); Bilirubin,Total 1.1 mg/dL (0.2-1.3); Blood Urea Nitrogen 2 mg/dL (7-17); Calcium 7.8 mg/dL (8.4-10.2); Carbon Dioxide 19 mmol/L (22-30); Chloride 104 mmol/L (98-107); Estimated CRCL calculation 82 ml/min; Estimated Glomerular Filt Rate > 60; Glucose 74 mg/dL (65-110); Magnesium 1.2 mg/dL (1.6-2.3); Potassium 3.9 mmol/L (3.4-5.0); Sodium 135 mmol/L (137-145)
[2023-01-11 05:14] LABS: Hepatitis B Surface Antigen Negative (Negative)
[2023-01-11 05:20] LABS: HAV RESULT Negative (Negative); Hepatitis B Core IgM Result Negative (Negative)
[2023-01-11 05:32] LABS: Hepatitis C Virus Antibody Negative (Negative)
[2023-01-11 06:11] LABS: Glucose Point of Care 88 mg/dl (65-105)
--- NOTE | 2023-01-11 07:51 | PC.NURSE ---
To GI Lab wheelchair, IV patent and locked. Report given to ALESHIA Redding.
[2023-01-11] MEDS: LACTATED RINGERS 1,000 ML 150 ML IV CONT (08:05)
--- NOTE | 2023-01-11 08:17 | WPDANESEPPF ---
Anes - Initial Pre Proc Eval Procedure: Operation Date: 01/11/23 09:15 Proposed Procedures p Esophagogastroduodenoscopy - Christ Montoya MD Date/Time: 01/11/23 08:17 Surgeon: Wang Davidson MD Pre Op Diagnosis: GI Bleed Patient Data Age: 27 Gender: F Height: 1.57 m Weight: 60.3 kg Last Vital Signs Temp 36.4 C L 01/11/23 07:55 Pulse 95 01/11/23 07:55 Resp 20 01/11/23 07:55 BP 127/84 01/11/23 07:55 Pulse Ox 100 01/11/23 07:55 O2 Del Method Room Air 01/11/23 07:55 Allergies Allergy/AdvReac Type Severity Reaction Status Date / Time Penicillins Allergy Mild Rash Verified 01/11/23 08:04 Home Medications Medication Instructions Recorded Confirmed Type metoprolol succinate 25 mg 12.5 mg PO DAILY #45 tabs 09/23/22 01/11/23 Rx tablet,extended release 24 hr ondansetron 8 mg disintegrating 8 mg PO BID PRN Nausea And Vomiting 01/10/23 01/11/23 History tablet Laboratory Tests 01/10/23 01/10/23 01/10/23 09:07 14:31 17:32 WBC RBC Hgb 12.2 g/dL 11.1 L g/dL (12.0-15.0) (12.0-15.0) Hct 39.8 % 35.0 L % (37.0-47.0) (37.0-47.0) MCV MCH MCHC RDW Plt Count MPV Immature Gran % (Auto) Neut % (Auto) Lymph % (Auto) Alexander % (Auto) Eos % (Auto) Baso % (Auto) Lymph # (Auto) Alexander # (Auto) Eos # (Auto) Baso # (Auto) Abs Immat Gran (auto) Absolute Neuts (auto) Absolute Nucleated RBC Nucleated RBC % Sodium Potassium Chloride Carbon Dioxide Anion Gap BUN Creatinine Estim Creat Clear Calc Estimated GFR Glucose POC Capillary Glucose Calcium Magnesium Total Bilirubin AST ALT Alkaline Phosphatase Total Protein Albumin Urine Color Yellow (Yellow) Urine Appearance Clear (Clear) Urine pH 5.0 (5.0-9.0) Ur Specific [place] 1.052 H (1.001-1.035) Urine Protein Trace mg/dL (Negative) Urine Glucose (UA) Negative mg/dL (Negative) Urine Ketones 2+ H mg/dL (Negative) Ur Blood (Man) 3+ H (Negative) Urine Nitrate Negative (Negative) Urine Bilirubin Negative (Negative) Urine Urobilinogen 0.2 mg/dL (<2.0) Leukocyte Esterase Rfl Negative [place]/UL (Negative) Urine RBC 0-2 /hpf (0-2) Urine WBC 0-5 /hpf Ur Squamous Epith Cells None seen /hpf (Few) Urine Bacteria None seen /hpf Urine Casts 0-2 Hepatitis A IgM Ab Hep Bs Antigen Hep B Core IgM Ab Hepatitis C Ab Screen 01/10/23 01/10/23 01/10/23 18:19 21:07 23:41 WBC RBC Hgb 11.5 L g/dL (12.0-15.0) Hct 35.5 L % (37.0-47.0) MCV MCH MCHC RDW Plt Count MPV Immature Gran % (Auto) Neut % (Auto) Lymph % (Auto) Alexander % (Auto) Eos % (Auto) Baso % (Auto) Lymph # (Auto) Alexander # (Auto) Eos # (Auto) Baso # (Auto) Abs Immat Gran (auto) Absolute Neuts (auto) Absolute Nucleated RBC Nucleated RBC % Sodium Potassium Chloride Carbon Dioxide Anion Gap BUN Creatinine Estim Creat Clear Calc Estimated GFR
--- NOTE | 2023-01-11 08:44 | WPDGICN ---
Assessment and Plan Assessment and plan (1) Hematemesis: Code(s): K92.0 - Hematemesis Status: Acute Assessment and Plan: will perform urgent egd iv protonix assess if ulcer/esophagitis or even varices (she is a drinker) more recommendations after scope (2) Elevated liver enzymes: Code(s): R74.8 - Abnormal levels of other serum enzymes Status: Acute Assessment and Plan: probably from alcoholic liver disease hepatitis negative trend liver enzymes CT scan showed fatty liver discussed with patient and mother about risk of progression to cirrhosis if she continues drinking (3) Alcohol abuse: Code(s): F10.10 - Alcohol abuse, uncomplicated Status: Acute Assessment and Plan: risk for withdrawal ciwa protocol thiamine (4) Acute dehydration: Code(s): E86.0 - Dehydration Status: Acute Assessment and Plan: medical treatment and better (5) Macrocytosis: Code(s): D75.89 - Other specified diseases of blood and blood-forming organs Status: Acute (6) Lactic acidosis: Code(s): E87.2 - Acidosis Status: Acute Assessment and Plan: improved (7) Acute blood loss anemia: Code(s): D62 - Acute posthemorrhagic anemia Status: Acute Assessment and Plan: probably she came in hemoconcentrated whoch could explain drop of hgb but also hematemesis egd now monitor for more signs of bleeding (8) Anxiety: Code(s): F41.9 - Anxiety disorder, unspecified Status: Acute (9) Sinus tachycardia: Code(s): R00.0 - Tachycardia, unspecified Status: Acute Assessment and Plan: on b-ashley at home GI Consult Note Consult date/time: 01/11/23 08:44 Reason for consult: coffee ground emesis, alcohol abuse HPI: Abida Bello is a 27 year old female with palpitations on metoprolol and alcohol abuse. She has been in the hospital in the past when was diagnosed with enterocolitis (CT scan) treated with antibiotics, also transaminases 100's- thought to be related to alcohol use and diagnosed with dehydration and possible alcoholic ketoacidosis. She had EGD 2020 that showed mild gastritis, colonoscopy unremarkable with unremarkable biopsies (not longer using ppi). She came here with progressive nausea then emesis and noted streak of blood, denies fever. She has been drinking alcohol normally 10 drinks a week or probably more. Blood work showed elevated liver enzymes 200-400 (AST/ALT >2), normal bili, wbc 16k, hgb 14 down to 11, lactic 2.[address] scan showed fatty liver. Also had tremors. Started on iv protonix, ciwa protocol and monitor for alcohol withdrawal. Review of Systems Constitutional: Constitutional: Denies chills Eyes: Eyes: Denies blurry vision ENT: Reports Normal hearing present Cardiovascular: Cardiovascular: Denies chest pain Respiratory: Respiratory: Denies cough Gastrointestinal: Gastrointestinal: Reports nausea, Reports vomiting and Reports hematemesis Genitourinary: Genitourinary: Denies dysuria Musculoskeletal: Musculoskeletal: Denies arthralgias Integumentary/Breasts: Skin/Breast: Denies rash Neurologic: Denies confusion Psychiatric: Psychiatric: Reports anxiety FOR[facility], [facility] Past Medical History Medical History (Updated 01/11/23 @ 09:54 by Christ Montoya MD) Acute blood loss anemia Alcohol use Anxiety Cannabis abuse Diarrhea Hematemesis Surgical History Surgical History [place] teeth extracted Family History Family History Father Cancer Hypertension Stomach cancer Grandparent Diabetes mellitus Acute myocardial infarction Hypertension Malignant neoplasm of prostate Sibling Hypertension Other Breast cancer Family history of alcoholism Family history of arthritis Pancreatic cancer Social His
--- NOTE | 2023-01-11 09:01 | PC.NURSE ---
Pt back in room from GI lab. No needs at this time.
[2023-01-11] MEDS: MAGNESIUM SULF 4 GM/WATER100ML 4 GM/100 ML BAG IVPB (09:44)
[2023-01-11] MEDS: THIAMINE HCL 200 MG/2 ML VIAL 100 MG IV PUSH (09:44)
[2023-01-11] MEDS: METOPROLOL SUCCINATE EXT REL 12.5 MG TABCR PO (09:44)
--- NOTE | 2023-01-11 10:56 | PCDIET ---
Dietitian consult for Low Fat Diet instructions. See Nutritional Teaching Intervention. Thank you for the consult.
[2023-01-11] MEDS: SUCRALFATE SUSP 100 MG/ML 10 ML UDC 1000 MG PO ×3 (11:18→20:59)
[2023-01-11 12:47] LABS: Glucose Point of Care 110 mg/dl (65-105)
--- NOTE | 2023-01-11 14:51 | WPDPN ---
Progress Note: A&P Assessment and Plan (1) Acute GI bleeding: Code(s): K92.2 - Gastrointestinal hemorrhage, unspecified Status: Acute Assessment and Plan: Continue to monitor her H&H every 6 hours. The patient was placed on a Protonix drip. The patient states that she is not a heavy drinker however did place her on CIWA protocol. The patient states that she drinks on the weekends. Help overall her liver enzymes are elevated. Could just be due to her diffuse hepatic steatosis. GI has been consulted. Continue with antiemetics and IV fluids.Advanced diet as tolerated. 01/11/2023 interval history: patient presented with concerning for GI bleed, was seen by GI and had EGD with which did not show any source of acute bleeding, showed gastritis and GI recommeded PPI, alos patient has history of alcohol abuse and on CIWA protocol with librium, will monitor. patient has history of anxiety will start Vistril and instructed patient to follow up with her primary care provider. Patient mother is pesent in the room and gave update. (2) Anxiety: Code(s): F41.9 - Anxiety disorder, unspecified Status: Acute Assessment and Plan: P.r.n. Ativan. (3) Sinus tachycardia: Code(s): R00.0 - Tachycardia, unspecified Status: Acute Assessment and Plan: The patient's heart rates in the 120s to 130s. The patient stated that she is typically elevated in the 120 some 130 she was placed on once a day metoprolol low dose. However her blood pressure is on the soft side 90s over 60s we cannot resume her metoprolol at this time. (4) Elevated liver enzymes: Code(s): R74.8 - Abnormal levels of other serum enzymes Status: Acute Assessment and Plan: Hepatitis panel has been ordered. CT scan shows diffuse hepatic steatosis (5) Alcohol abuse: Code(s): F10.10 - Alcohol abuse, uncomplicated Status: Acute Assessment and Plan: Continue with CIWA protocol. Beer folic acid thiamin and PRn Librium (6) Cannabis abuse: Code(s): F12.10 - Cannabis abuse, uncomplicated Status: Acute Assessment and Plan: The patient could cyclic vomiting from cannabis use. The patient stated she has not used in a while. Subjective Date/time seen: 01/11/23 14:51 Interval history: Arrhythmia HPI-Narrative: This is a 27-year-old female patient who has a history of gastritis.? The patient has had chronic GERD for over 3 years.? The patient does not take omeprazole on a daily basis anymore.? The patient also has a history of sinus tachycardia of which she takes metoprolol.? The patient has had an EGD approximately 2-3 years ago was found that she has gastritis.? The patient now comes in with recurrent vomiting and nausea for several days.? It was noted that her emesis was blood streaked.? Patient was tachycardic today heart rate in the 140s.? She stated she has not use cannabis recently.? Abdominal pelvis CT was read as diffuse hepatic steatosis.? GI has been consulted. 01/11/2023 interval history: patient presented with concerning for GI bleed, was seen by GI and had EGD with which did not show any source of acute bleeding, showed gastritis and GI recommeded PPI, alos patient has history of alcohol abuse and on CIWA protocol with librium, will monitor. patient has history of anxiety will start Vistril and instructed patient to follow up with her primary care provider. Patient mother is pesent in the room and gave update. Review of Systems Review of Systems: All systems reviewed & are unremarkable except as noted in HPI and below Exam Narrative: Patient is comfortable, NAD HEENT: eyes are clear and none icteric LUNGS: Normal respiratory effort ABD: Not distended Lower extremities: no edema SKIN: nonjaundiced Neuro: grossly intact. Objective Data Vital Signs Vital Signs: Vital Signs - 24 hr 01/10/23 16:00 01/10/23 16:00 01/10/23 16:00 Temperature 98.4 F
[2023-01-11] MEDS: chlordiazePOXIDE (*CRX) 25 MG CAPSULE PO (16:37)
--- NOTE | 2023-01-11 16:49 | PC.NURSE ---
BP 132/103 in left arm 136/96 in right arm via automatic cuff. Dr. Fuller made aware. Advised to give prn Librium. Pt reports this happened last time she was in the hospital her BP increased due to anxiety. Pt agreeable to plan of care.
[2023-01-11] MEDS: hydrOXYzine pamoate 25 MG CAPSULE PO (19:11)
[2023-01-11] MEDS: PANTOPRAZOLE SODIUM IV 40 MG VIAL IV PUSH (20:59)
[2023-01-12] VITALS (8 sets, daily range): BP systolic 123–125; BP diastolic 97–103; PULSE 65–93; RESP 17–19; TEMP 36.4–36.8; O2SAT 100
[2023-01-12] MEDS: SUCRALFATE SUSP 100 MG/ML 10 ML UDC 1000 MG PO ×2 (06:11→11:41)
[2023-01-12 09:27] LABS: Hematocrit 37.4 % (37.0-47.0); Hemoglobin 12.4 g/dL (12.0-15.0); Mean Corpuscular HGB Conc 33.2 g/dl (32-36); Mean Corpuscular Hemoglobin 34.3 pg (26-34); Mean Corpuscular Volume 103.6 fl (80-100); Mean Platelet Volume 9.9 fl (7.4-10.4); Platelet Count Result 151 k/mm3 (150-375); Red Blood Count 3.61 M/mm3 (4.2-5.4); Red Cell Distribution Width 12.2 % (11.5-14.5); White Blood Count 6.6 K/mm3 (4.5-10.0)
[2023-01-12 09:35] LABS: Magnesium 1.5 mg/dL (1.6-2.3)
[2023-01-12 09:36] LABS: Alanine Aminotransferase 99 U/L (6-35); Alkaline Phosphatase 78 U/L (38-126); Anion Gap 9 mmol/L (8-16); Aspartate Amino Transferase 110 U/L (14-36); Calcium 9.1 mg/dL (8.4-10.2); Carbon Dioxide 24 mmol/L (22-30); Chloride 101 mmol/L (98-107); Estimated CRCL calculation 111 ml/min; Estimated Glomerular Filt Rate > 60; Glucose 86 mg/dL (65-110); Potassium 3.3 mmol/L (3.4-5.0); Sodium 134 mmol/L (137-145)
[2023-01-12] MEDS: METOPROLOL SUCCINATE EXT REL 12.5 MG TABCR PO (09:52)
[2023-01-12] MEDS: THIAMINE HCL 100 MG TABLET PO (09:52)
[2023-01-12] MEDS: PANTOPRAZOLE 40 MG TABLET PO (09:52)
[2023-01-12 10:05] LABS: Blood Urea Nitrogen < 2 mg/dL (7-17)
--- NOTE | 2023-01-12 11:00 | WPDANESPN ---
Anes - Prog Note Post-Op Date/Time: 01/12/23 11:00 Cardiovascular status: normal Respiratory status: normal Airway patency: baseline Mental status: baseline Post-Op hydration status: normal Vital Signs: Last Vital Signs Temp 98.2 F 01/12/23 08:00 Pulse 85 01/12/23 09:52 Resp 19 01/12/23 08:00 BP 123/99 H 01/12/23 08:00 Pulse Ox 100 01/12/23 08:00 O2 Del Method Room Air 01/12/23 08:00 Pain Score (VAS): 0-1 I/O: Intake & Output 01/11/23 01/12/23 01/12/23 23:59 07:59 15:59 Intake Total 290 600 120 Output Total 1400 Balance 290 -800 120 Laboratory Tests 01/12/23 09:20 01/12/23 09:20 01/11/23 01/12/23 12:44 09:20 WBC 6.6 RBC 3.61 L Hgb 12.4 Hct 37.4 MCV 103.6 H MCH 34.3 H MCHC 33.2 RDW 12.2 Plt Count 151 MPV 9.9 Sodium 134 L Potassium 3.3 L Chloride 101 Carbon Dioxide 24 Anion Gap 9 BUN < 2 L Creatinine 0.50 L Estim Creat Clear Calc 111 Estimated GFR > 60 Glucose 86 POC Capillary Glucose 110 H Calcium 9.1 Magnesium 1.5 L Total Bilirubin 1.0 AST 110 H ALT 99 H Alkaline Phosphatase 78 Total Protein 7.0 Albumin 4.0 Post-procedural complaints: none Patient Feedback: Patient satisfied with anesthetic care.
--- NOTE | 2023-01-12 13:19 | WPDGIPROGNO ---
Progress Note: A&P Assessment and Plan (1) Hematemesis: Code(s): K92.0 - Hematemesis Status: Acute Assessment and Plan: no more bleeding found non-bleeding ulcerative esophagitis, s/p bx she can go home with ppi twice daily, also carafate for 2 weeks she understood that needs to stop drinking alcohol follow-up office 4-6 weeks (2) Erosive esophagitis: Code(s): K22.10 - Ulcer of esophagus without bleeding Status: Acute Assessment and Plan: ppi now eating and feeling like going home (3) Acute dehydration: Code(s): E86.0 - Dehydration Status: Acute Assessment and Plan: resolved (4) Elevated liver enzymes: Code(s): R74.8 - Abnormal levels of other serum enzymes Status: Acute Assessment and Plan: probably from alcohol use advised again to discontinue alcohol (5) Alcohol use: Code(s): Z72.89 - Other problems related to lifestyle Status: Acute (6) Nausea & vomiting: Code(s): R11.2 - Nausea with vomiting, unspecified Status: Acute Assessment and Plan: resolved Subjective Date/time seen: 01/12/23 13:19 Interval history: doing well, tolerating diet and feeling better. Review of Systems Review of Systems: All systems reviewed & are unremarkable except as noted in HPI and below Exam Const: General: comfortable and no acute distress HENMT: Face/Nose/Sinus: Normal nares present Eyes: General: appearance normal, both eyes and all related structures Neck: Neck: no JVD Resp: Auscultation: clear to auscultation bilaterally Cardio: Rate: regular rate Rhythm: regular rhythm GI: Inspection: non-distended GI Palp: Yes Soft to palpation and No Guarding due to palpation present (GI) Auscultation: normal bowel sounds Skin: General skin exam: normal color Neuro: Speech: normal speech Motor exam (neuro): 5/5 motor strength present throughout Extrem: General: normal to inspection Psych: Mental Status: mental status grossly normal Objective Data Vital Signs Vital Signs: Vital Signs - 24 hr 01/11/23 14:00 01/11/23 16:00 01/11/23 16:00 Temperature Pulse Rate 99 99 Pulse Rate [Monitor] 99 Respiratory Rate Blood Pressure Pulse Oximetry Oxygen Delivery 01/11/23 16:00 01/11/23 18:00 01/11/23 21:05 Temperature 97.1 F L Pulse Rate 82 83 Pulse Rate [Monitor] Respiratory Rate 12 Blood Pressure 139/97 H Pulse Oximetry 99 100 Oxygen Delivery Room Air 01/11/23 20:00 01/11/23 20:00 01/11/23 22:00 Temperature Pulse Rate 81 92 Pulse Rate [Monitor] Respiratory Rate Blood Pressure Pulse Oximetry 100 Oxygen Delivery Room Air 01/12/23 00:00 01/12/23 00:00 01/12/23 02:00 Temperature 97.5 F L Pulse Rate 70 71 74 Pulse Rate [Monitor] Respiratory Rate 17 Blood Pressure 125/97 H Pulse Oximetry 100 Oxygen Delivery 01/12/23 04:00 01/12/23 04:00 01/12/23 06:00 Temperature 97.9 F Pulse Rate 78 86 65 Pulse Rate [Monitor] Respiratory Rate 18 Blood Pressure 123/103 H Pulse Oximetry 100 Oxygen Delivery 01/12/23 08:00 01/12/23 08:00 01/12/23 09:52 Temperature 98.2 F Pulse Rate 82 82 85 Pulse Rate [Monitor] Respiratory Rate 19 19 Blood Pressure 123/99 H Pulse Oximetry 100 100 Oxygen Delivery Room Air 01/12/23 08:00 01/12/23 10:00 Temperature Pulse Rate 93 71 Pulse Rate [Monitor] Respiratory Rate Blood Pressure Pulse Oximetry Oxygen Delivery Intake/Output Intake/Output: Intake & Output 01/09/23 01/10/23 01/11/23 01/12/23 23:59 23:59 23:59 23:59 Intake Total 3620 1230 720 Output Total 022 136 3568 Balance 3220 330 -680 Meds/Results Medications: Active Medications Generic Name Dose Route Start Last Admin Trade Name Freq PRN Reason Stop Dose Admin Chlordiazepoxide HCl 25 mg 01/10/23 16:45 01/11/23 16:37 Chlordiazepoxide (*Crx) 25 Mg Capsule PO
--- NOTE | 2023-01-12 13:38 | PM.DS ---
DS: Admitting Diagnosis Discharge Date 01/12/2023 Admitting Diagnosis 01/10/2023 DS: Discharge Diagnosis Discharge Diagnosis (1) Acute GI bleeding: Code(s): K92.2 - Gastrointestinal hemorrhage, unspecified Status: Acute Assessment and Plan: Continue to monitor her H&H every 6 hours. The patient was placed on a Protonix drip. The patient states that she is not a heavy drinker however did place her on CIWA protocol. The patient states that she drinks on the weekends. Help overall her liver enzymes are elevated. Could just be due to her diffuse hepatic steatosis. GI has been consulted. Continue with antiemetics and IV fluids.Advanced diet as tolerated. patient presented with concerning for GI bleed, was seen by GI and had EGD with which did not show any source of acute bleeding, showed gastritis and GI recommeded PPI, alos patient has history of alcohol abuse and on CIWA protocol with librium, will monitor. patient has history of anxiety will start Vistril and instructed patient to follow up with her primary care provider. Patient mother is present in the room and gave update. Pt is stable no signs of alcholol with drawl stable for DC on PPI bid and sucralfate (2) Anxiety: Code(s): F41.9 - Anxiety disorder, unspecified Status: Acute Assessment and Plan: P.r.n. [place] in hospital pt appears comfortable to day ok to DC Advised no more alcohol (3) Sinus tachycardia: Code(s): R00.0 - Tachycardia, unspecified Status: Acute Assessment and Plan: The patient's heart rates in the 120s to 130s. The patient stated that she is typically elevated in the 120 some 130 she was placed on once a day metoprolol low dose. BP is good today pt can restart her home BB (4) Elevated liver enzymes: Code(s): R74.8 - Abnormal levels of other serum enzymes Status: Acute Assessment and Plan: Hepatitis panel has been ordered. CT scan shows diffuse hepatic steatosis (5) Alcohol abuse: Code(s): F10.10 - Alcohol abuse, uncomplicated Status: Acute Assessment and Plan: Continue with CIWA protocol. Beer folic acid thiamin and PRn Librium (6) Cannabis abuse: Code(s): F12.10 - Cannabis abuse, uncomplicated Status: Acute Assessment and Plan: The patient could cyclic vomiting from cannabis use. The patient stated she has not used in a while. DS: Summary Hospital Course Hospital Course: 27-year-old female patient who has a history of gastritis.? The patient has had chronic GERD for over 3 years.? The patient does not take omeprazole on a daily basis anymore.? The patient also has a history of sinus tachycardia of which she takes metoprolol.? The patient has had an EGD approximately 2-3 years ago was found that she has gastritis.? The patient now comes in with recurrent vomiting and nausea for several days.? It was noted that her emesis was blood streaked.? Patient was tachycardic today heart rate in the 140s.? She stated she has not use cannabis recently.? Abdominal pelvis CT was read as diffuse hepatic steatosis.? GI has been consulted.?Pt found non-bleeding ulcerative esophagitis, s/p bx on EGD she can go home with ppi twice daily, also carafate for 2 weeks she understood that needs to stop drinking alcohol follow-up office 4-6 weeks Time Spent with Patient Time attestation: Total time spent providing and/or coordinating discharge services:40 minutes on day of DC Exam Narrative: Patient is comfortable HEENT: eyes are clear and none icteric LUNGS: Normal respiratory effort ABD0: Not distended Lower extremities: no edema Neuro: grossly intact. DS: Data Data Completed and Pending Pending studies at discharge: Pending at discharge 01/11/23 09:03 Surgical [PTH] Routine Labs on day of discharge: Labs from last 24 hours 01/12/23 09:20 WBC 6.6 RBC 3.61 L Hgb 12.4 Hct 37.4 MCV 103.6 H MCH 34.3 H MCHC 33.
== END 2023-01-12 14:30 | disposition home or self-care (01) ==
LOC: ANHED 08:46 → ANHICU 12:22 → ANHIMU 01-13 09:32
PROVIDERS: Internal Medicine Gastroenterology; Nurse Practitioner; Admitting Provider Chiropractor; Emergency Provider Emergency Medicine; PCP Family Medicine; Visit Provider Family Medicine
PROC: 0DJ08ZZ Inspection of Upper Intestinal Tract, Via Natural or Artificial Opening Endoscopic (ICD-10-PCS; CPT 43235; principal; 2023-01-11 09:15)
DX: K92.2 Gastrointestinal hemorrhage, unspecified (principal); K22.10 Ulcer of esophagus without bleeding; R00.0 Tachycardia, unspecified; E86.0 Dehydration; D75.89 Other specified diseases of blood and blood-forming organs; E87.20 Acidosis, unspecified; D62 Acute posthemorrhagic anemia; F41.9 Anxiety disorder, unspecified; R74.8 Abnormal levels of other serum enzymes; R11.2 Nausea with vomiting, unspecified; F12.10 Cannabis abuse, uncomplicated; F10.10 Alcohol abuse, uncomplicated; K76.0 Fatty (change of) liver, not elsewhere classified; Z79.899 Other long term (current) drug therapy
CPT/HCPCS: 43239; 36415; 74177; 80053; 80074; 81001; 82948; 83690; 83735; 84702; 85014; 85018; 85025; 85027; 88305; 88342; 93005; 96361; 96365; 96366; 96374; 96375; 99285; A9270; C9113; G0378; G0379; J0780; J2060; J2405; J2704; J3411; J3475; J7030; J7040; J7120; Q9967

== ENCOUNTER 2023-02-13 09:36 | Emergency (ER) | payer OTHER, SELFPAY ==
--- NOTE | ~2023-02-13 | XR_ITS ---
XR foot RT min 3V DATE: 02/13/2023 09:57 INDICATION: Injury 2 days ago. Right great toe pain TECHNIQUE: 4 views COMPARISON: None FINDINGS: No fracture or dislocation, periosteal reaction or bone destruction. Partially incorporated os tibiale externum, normal variant. IMPRESSION: No fracture Reviewed, dictated and finalized at location A. IMPRESSION: No fracture
[2023-02-13 09:46] VITALS: BP 130/89; PULSE 108; RESP 16; TEMP 37.2; O2SAT 99
--- NOTE | 2023-02-13 10:12 | ED.LOWEXIN ---
HPI - Extremity Injury (Lower) General Chief Complaint: Extremity Injury, Lower Stated Complaint: Right Foot Injury Time Seen by Provider: 02/13/23 09:51 Source: patient and RN notes reviewed Mode of arrival: ambulatory Limitations: no limitations History of Present Illness HPI Narrative: Patient presents today complaining of an injury to her right 1st toe 2 days ago when she accidentally kicked another person's lower leg. She currently rates her pain 7/10. Denies numbness or tingling. She has applied ice it taken 1 dose of Tylenol, which has provided some mild relief. Related Data Home Medications Medication Instructions Recorded Confirmed ondansetron 8 mg disintegrating 8 mg PO BID PRN Nausea And Vomiting 01/10/23 02/13/23 tablet Allergies Allergy/AdvReac Type Severity Reaction Status Date / Time Penicillins Allergy Mild Rash Verified 02/13/23 09:49 Review of Systems Review of Systems: CONSTITUTIONAL: Denies body aches, fever, chills, or sweats. EYES: Denies visual changes, redness, or discharge. ENT: Denies rhinorrhea, congestion, sore throat, or otalgia. CARDIOVASCULAR: Denies chest pain, palpitations, or edema. RESPIRATORY: Denies cough or dyspnea. GASTROINTESTINAL: Denies abdominal pain, nausea, vomiting, or diarrhea. GENITOURINARY: Denies dysuria or hematuria. SKIN: Denies rash, itching, or wounds. MUSCULOSKELETAL: Denies back pain, or myalgia.+ right great toe injury NEUROLOGIC: Denies headache, numbness, tingling, or weakness. PSYCH: Denies depression or anxiety. PMF Past Medical History Medical History Acute blood loss anemia Alcohol use Anxiety Cannabis abuse Diarrhea Erosive esophagitis Hematemesis Surgical History Surgical History [place] teeth extracted Family History Family History Father Cancer Hypertension Stomach cancer Grandparent Diabetes mellitus Acute myocardial infarction Hypertension Malignant neoplasm of prostate Sibling Hypertension Other Breast cancer Family history of alcoholism Family history of arthritis Pancreatic cancer Social History Social History Social History: She is single without any children. She lives with roommates. She is currently employed as a energy professional Surrogate decision maker: Bonnie Hollis, mother. Code status: Full code. Smoking status: Never smoker Second hand tobacco smoke exposure: No Alcohol intake: current Drinks per week: 10 Alcohol use details: Drinks whiskey several times a week, unable to qualify how much she drinks. Substance use: current Substance use type: marijuana Other substance usage details: marijuana is smoked Last use: 03/24/21 Lack of Transportation: No Lack of Food: Never True Current Housing: I Have Housing Concerned About Future Housing: No Difficulty Paying Gas/Electric Bills: No Difficulty Paying for Meds: No Currently Unemployed: No Education: Trade/Vocational Certificate Difficulty w/ Childcare or Family Care: No Living arrangements: with friend(s) Additional living arrangements comments: Lives in [place] with a roommate. Additional occupation/education comments: Beautician. Gender identity (if verbalized by the patient): Female Spiritual care concerns: No Comments At time of signature, I have reviewed and agree with nursing past medical, surgical, social and family history unless otherwise noted. Please see nursing chart for further information. There is no relevant family history pertinent to the presenting complaint Exam Narrative: GENERAL: Well-appearing, well-nourished, and in no acute distress. HEAD: Normocephalic, atraumatic. EYES: EOMI. No redness or drainage. Conjunctivae no
== END 2023-02-13 10:30 | disposition home or self-care (01) ==
PROVIDERS: Emergency Provider Nurse Practitioner; PCP Family Medicine
DX: S90.111A Contusion of right great toe without damage to nail, initial encounter (principal); W51.XXXA Accidental striking against or bumped into by another person, initial encounter
CPT/HCPCS: 73630; 99213; G0463